=== PATIENT | female | born 1945 | race Caucasian/White ===

== ENCOUNTER 2023-12-29 17:27 | Emergency (ER) | payer MEDICARE, SELFPAY ==
[2023-12-29 17:42] VITALS: BP 150/76
[2023-12-29 18:08] LABS: % Basophils 0.7 % (0-2); % Eosinophils 1.7 % (0-6); % Immature Granulocytes 0.6 % (0-0.5); % Lymphocytes 22.5 % (20.5-51.1); % Monocytes 6.5 % (1.7-9.3); Absolute Basophils 0.1 10^3/uL (0-0.2); Absolute Eosinophils 0.2 10^3/uL (0-0.7); Absolute Immature Granulocytes 0.1 10^3/uL (0-0.05); Absolute Monocytes 0.6 10^3/uL (0.1-0.6); Absolute Neutrophils 5.9 10^3/uL (1.4-6.5); Hematocrit 36.9 % (37.0-47.0); Hemoglobin 12.7 g/dL (12.0-16.0); Mean Corp Hgb Conc. 34.4 g/dL (33.0-37.0); Mean Corpuscular Hgb 30.5 pg (27.0-31.0); Mean Corpuscular Volume 88.5 fL (81.0-99.0); Mean Platelet Volume 12.2 fL (7.4-10.4); Nucleated Red Blood Cells % 0 %; Platelet Count 167 10^3/uL (130-400); Red Blood Cell Count 4.17 10^6/uL (4.20-5.40); Red Cell Dist. Width 12.8 % (11.5-14.5); White Blood Cell Count 8.7 10^3/uL (4.8-10.8)
[2023-12-29 18:31] LABS: Troponin I < 0.012 ng/ml
[2023-12-29 18:32] LABS: COVID-19 Antigen Negative (Negative)
[2023-12-29 18:34] LABS: ALT (SGPT) 16 U/L (0-35); AST (SGOT) 26 U/L (14-36); Albumin 3.3 g/dl (3.5-5.0); Alkaline Phosphatase 102 U/L (38-126); Blood Urea Nitrogen 22 mg/dl (7-17); Calcium 8.9 mg/dl (8.4-10.2); Carbon Dioxide 23 mmol/L (22-30); Chloride 107 mmol/L (98-107); Glucose 262 mg/dl (70-99); Potassium 4.2 mmol/L (3.5-5.1); Sodium 138 mmol/L (135-145); Total Bilirubin 0.6 mg/dl (0.2-1.3); eGFR 51.11
[2023-12-29 21:00] VITALS: BP 138/61
--- NOTE | 2023-12-29 21:30 | ED.GENMED ---
History of Present Illness
General
Chief Complaint: Breathing Problem
Source: patient
Exam Limitations: none
Time Seen by Provider: 12/29/23 20:38
Nursing documentation reviewed up to this point in time: agreed with
Travel History
Have you had any contact with someone who has COVID-19?: No
Do you have any symptoms of coronavirus? Fever > 100 degrees, chills, cough, shortness of breath, sore throat, loss of taste or smell, muscle aches, or headache?: Yes
Symptoms:: cough
History of Present Illness
History of Present Illness:
Patient presents to ED secondary to 2-week history of persistent cough, along with left-sided chest pain. Denies fever or chills. Patient reports mild shortness of breath. Denies nausea, vomiting, or diarrhea. Denies headache. Denies loss of
appetite. Denies back pain. Denies leg pain or swelling. Denies recent travel or surgery. Interestingly, patient states that her pain has decreased in intensity over the past 3 days, although cough is continuing. Patient has had history of
bronchitis in the past. Denies family history of blood clots.
Past History
Past History
ED Past Medical History: CAD, COPD, HTN and Other (Polymyalgia rheumatica/fibromyalgia)
ED Past Surgical History: None
Social History
Tobacco: Non-smoker
Alcohol: None
Drug: None
Review of Systems
Review of Systems
Allergies reviewed?: Yes
All Other Systems: ROS reviewed and negative except as documented in HPI and ROS
Constitutional: Reports no symptoms
EENT: Reports no symptoms
Respiratory: Reports cough and trouble breathing
Cardiac: Reports chest pain
ABD/GI: Reports no symptoms
: Reports no symptoms
Musculoskeletal: Reports no symptoms
Skin: Reports no symptoms
Neurological: Reports no symptoms
Phy Exam
Physical Exam
Physical Exam:
Physical Exam
General: no apparent distress, not acutely ill. afebrile.
Head: nc/at. eomi
Neck: supple. no meningeal signs.
Heart: s1/s2 regular rate and rhythm, no murmur. equal radial pulses.
Lungs: no acute respiratory distress. faint expiratory wheezing noted bilaterally. mild left anterior chest wall tenderness to palpation.
Abdomen: normal bowel sounds. not tender.
Neuro: alert and oriented. no focal neurological deficits
Skin: no rash
Psychiatric: well kept. interactive and cooperative
Extremities: no edema. no calf tenderness.
Scores
Heart Failure Risk
Heart Failure Risk Score: Not Applicable
Course
Orders/Labs/Results
Orders:
Orders
12/29/23 17:48
EKG [Electrocardiogram (*1)] Urgent
Reason for Study: Shortness of Breath
12/29/23 17:49
EKG- Treatment ONCE
12/29/23 18:00
CBC/With Diff [Complete Blood Count/With Diff] Urgent
CMP [Comprehensive Metabolic Panel] Urgent
COVID-19 Antigen Urgent
Source: Nasal Swab
Troponin I Urgent
12/29/23 20:39
CR Chest - 2 Views Urgent
Comment:
Reason For Exam: cough/sob/cp
12/29/23 21:28
D-Dimer Urgent
12/29/23 21:30
Dexamethasone Sod Phosphate [Decadron] 10 mg IV NOW STA
Guaifenesin/Codeine Solution [Robitussin AC] 10 ml PO NOW STA
Ipratropium/Albuterol Sulfate [Duoneb] 3 ml INH R NOW STA
Ketorolac [Toradol] 15 mg IV NOW STA
12/29/23 22:20
Azithromycin [Zithromax] 500 mg PO NOW STA
Abnormal Lab Results
12/29/23 12/29/23
18:00 21:28
RBC 4.17 L 10^6/uL
(4.20-5.40)
Hct 36.9 L %
(37.0-47.0)
MPV 12.2 H fL
(7.4-10.4)
Abs Immat Gran (auto) 0.1 H 10^3/uL
(0-0.05)
Immature Gran % 0.6 H %
(0-0.5)
D-Dimer 0.65 H ug/mlFEU
(0.00-0.50)
BUN 22 H mg/dl
(7-17)
Creatinine 1.1 H mg/dL
(0.6-1.0)
Glucose 262 H mg/dl
(70-99)
Total Protein 6.0 L g/dl
(6.3-8.2)
Albumin 3.3 L g/dl
(3.5-5.0)
12/29/23 18:00
12/29/23 18:00
Vital Signs
Initial and Last Documented VS:
Initial Vital Signs
Temp Pulse Resp BP Pulse Ox
98.1 F 65 20 150/76 96
12/29/23 17:42 12/29/23 17:42 12/29/23 17:42 12/29/23 17:42 12/29/23 17:42
Last Documented Vital Signs
Temp Pulse Resp BP Pulse Ox
98.1 F 55 14 157/70 97
12/29/23 17:42 12/29/23 22:15 12/29/23 22:15 12/29/23 22:00 12/29/23 22:00
MDM/Problems Addressed
MDM/Problems Addressed:
D-dimer, when adjusted for age, within normal range. Patient with chest pain, reproducible, likely secondary to musculoskeletal etiology from significant coughing spells. History and exam consistent with likely acute bronchitis, which will be
treated with a course of Zithromax, cough medication, as well as steroids and use of inhaler at home. Patient will be advised to follow-up with her primary care physician or oilseed meat presser for reevaluation. Patient will be discharged in stable
condition, to the care of her daughter.
*Critical Care Note
Total Time (30-74mins, 75-104mins- exclusive of procedures): Not Applicable
ED Attending Note
-
Portions of this chart may have been created with voice recognition software.� Occasional wrong word or��sound alike� substitutions may have occurred due to the inherent limitations of voice recognition software.
Discharge Plan
Departure
Patient Disposition: Home (Routine Discharge)
Date of Disposition: 12/29/23
Time of Disposition: 22:20
Patient with high blood pressure during this ER visit?: Yes
Discharge Problem:
Acute bronchitis, Chest wall pain
Instructions: Acute Bronchitis, Adult (DC)
Prescriptions:
New
azithromycin [Zithromax] 250 mg tablet
250 mg PO DAILY 4 Days Qty: 4 0RF
benzonatate 100 mg capsule
100 mg PO BID PRN (Reason: Cough) Qty: 14 0RF
albuterol sulfate [ProAir HFA] 90 mcg/actuation Hfa Aerosol Inhaler
2 puff INHALATION Q4HPRN PRN (Reason: shortness of breath/cough) Qty: 8.5 0RF
prednisone 50 mg tablet
50 mg PO DAILY Qty: 2 0RF
No Action
insulin detemir U-100 [Levemir FlexTouch U100 Insulin] 300 UNIT/3 ML insulin pen
30 unit SC 0700,1700
Patient Comments:
pt took 20units this am for blood sugar of 184.
mecobalamin (vitamin B12) 1,000 MCG tablet,disintegrating
1,000 mcg PO DAILY
topiramate 25 MG tablet
50 mg PO BID
Patient Comments:
pt normally take her twice a day meds around 8pm.but was home late last evening and took at 11pm
carisoprodol 350 MG tablet
350 mg PO HSPRN PRN (Reason: as directed)
triamterene-hydrochlorothiazid 1 EACH tablet
1 ea PO DAILY
montelukast 10 MG tablet
10 mg PO QPM
fluticasone propionate 1 SPRAY spray,suspension
1 spray intranasal DAILY
cholecalciferol (vitamin D3) [Vitamin D3] 1,000 UNIT capsule
1,000 unit PO DAILY
insulin aspart U-100 [Novolog FlexPen U-100 Insulin] 300 UNITS/3 ML insulin pen
8 units SC DAILY
Patient Comments:
normally takes 8units but may be a sliding scale
guaifenesin [Mucus Relief ER] 600 MG tablet extended release 12hr
600 mg PO Q12H
atorvastatin 40 MG tablet
40 mg PO DAILY
aspirin 81 MG tablet,delayed release (DR/EC)
81 mg PO DAILY
propranolol 80 MG capsule,extended release 24 hr
80 mg PO DAILY
jaqhgrgl-iew-ctzk-FA-vit K-lut [Centrum Silver Women] 1 EACH tablet
1 ea PO DAILY
vcgat-tmbiy-2-eig-hhr-odrldz [krill oil] 1 EACH capsule
1 ea PO DAILY
C,E,zinc,copper [id number] 1 CAP capsule
1 cap PO DAILY
Albuterol Nebs
1 dose inhalation PRN PRN (Reason: as directed)
lansoprazole [Prevacid] 15 MG capsule,delayed release(DR/EC)
15 mg PO DAILY
Zantac
1 tab PO DAILY
tramadol [Ultram] 50 MG tablet
50 mg PO Q6H PRN (Reason: pain) Qty: 20 0RF
oseltamivir 75 MG capsule
75 mg PO BID Qty: 10 0RF
Referrals:
Trish Alegre MD [Family Provider] -
Activity Restrictions/Additional Instructions:
As discussed, please follow-up with your primary care physician and/or oilseed meat presser for reevaluation. Your prescriptions have been sent electronically to [facility] pharmacy in [place].
Interventions
Interventions:
*Risk Screen - Suicide Last Done: 12/29/23 17:47
*General Assessment Last Done: 12/29/23 22:04
*Neglect/Abuse Screening Last Done: 12/29/23 17:47
ED- Fall Risk Assessment Last Done: 12/29/23 21:15
*ED COVID-19 Vaccine History Last Done: 12/29/23 17:47
*Nursing Disposition Last Done: 12/29/23 22:46
ED- Cardiac Assessment Last Done: 12/29/23 21:15
ED- Pulmonary Assessment Last Done: 12/29/23 21:15
Discharge Date and Time
Discharge Date/Time: 12/29/23 22:47
[2023-12-29 21:49] LABS: D-Dimer 0.65 ug/mlFEU (0.00-0.50)
[2023-12-29] MEDS: DECADRON 10 MG IV (21:56)
[2023-12-29] MEDS: DUONEB 3 ML INH (21:56)
[2023-12-29] MEDS: TORADOL 15 MG IV (21:57)
[2023-12-29 22:00] VITALS: BP 157/70
[2023-12-29] MEDS: ZITHROMAX 500 MG PO (22:38)
== END 2023-12-29 22:47 | disposition home or self-care (01) ==
LOC: EMR 17:27
PROVIDERS: Emergency Medicine; EMERGENCY PHYSICIAN Emergency Medicine; FAMILY PHYSICIAN Emergency Medicine
DX: J20.9 Acute bronchitis, unspecified (principal); R07.89 Other chest pain; I10 Essential (primary) hypertension
CPT/HCPCS: 99285; 96374; 96375; 94640; 71046; 80053; 84484; 85025; 85379; 87811; 93005

== ENCOUNTER → 2024-02-16 08:28 | Outpatient (REF) | payer MEDICARE, SELFPAY | LOC: WDC 08:28 | PROVIDERS: ATTENDING PHYSICIAN Nurse Practitioner Family | DX: N64.4 Mastodynia (principal) | CPT/HCPCS: 76642; 77062; 77066 ==

== ENCOUNTER 2024-03-14 18:58 | Inpatient (IN) | payer MEDICARE, SELFPAY ==
[2024-03-14 12:53] VITALS: BP 149/73
[2024-03-14] MEDS: DUONEB 3 ML INH (14:56)
[2024-03-14] MEDS: TYLENOL 650 MG PO (15:07)
[2024-03-14 15:08] LABS: % Basophils 0.3 % (0-2); % Eosinophils 0.2 % (0-6); % Immature Granulocytes 0.6 % (0-0.5); % Lymphocytes 4.3 % (20.5-51.1); % Monocytes 2.2 % (1.7-9.3); % Neutrophils 92.4 % (42.2-75.2); Absolute Basophils 0.1 10^3/uL (0-0.2); Absolute Immature Granulocytes 0.1 10^3/uL (0-0.05); Absolute Lymphocytes 0.8 10^3/uL (1.2-3.4); Absolute Monocytes 0.4 10^3/uL (0.1-0.6); Absolute Neutrophils 16.7 10^3/uL (1.4-6.5); Hematocrit 34.5 % (37.0-47.0); Hemoglobin 12.2 g/dL (12.0-16.0); Mean Corp Hgb Conc. 35.4 g/dL (33.0-37.0); Mean Corpuscular Volume 87.8 fL (81.0-99.0); Mean Platelet Volume 11.8 fL (7.4-10.4); Nucleated Red Blood Cells % 0 %; Platelet Count 201 10^3/uL (130-400); Red Blood Cell Count 3.93 10^6/uL (4.20-5.40); White Blood Cell Count 18.1 10^3/uL (4.8-10.8)
[2024-03-14 15:28] LABS: ALT (SGPT) 18 U/L (0-35); AST (SGOT) 22 U/L (14-36); Albumin 3.5 g/dl (3.5-5.0); Alkaline Phosphatase 122 U/L (38-126); Blood Urea Nitrogen 26 mg/dl (7-17); Calcium 9.2 mg/dl (8.4-10.2); Carbon Dioxide 20 mmol/L (22-30); Chloride 103 mmol/L (98-107); Estimated Creatinine Clearance 42 ml/min; Glucose 391 mg/dl (70-99); Potassium 3.8 mmol/L (3.5-5.1); Sodium 137 mmol/L (135-145); Total Bilirubin 0.9 mg/dl (0.2-1.3); Total Protein 5.8 g/dl (6.3-8.2); eGFR 46.05
--- NOTE | 2024-03-14 15:35 | ED.GENMED ---
History of Present Illness
General
Chief Complaint: Cough
Source: patient
Exam Limitations: none
Time Seen by Provider: 03/14/24 14:36
Travel History
Have you had any contact with someone who has COVID-19?: No
Do you have any symptoms of coronavirus? Fever > 100 degrees, chills, cough, shortness of breath, sore throat, loss of taste or smell, muscle aches, or headache?: No
History of Present Illness
History of Present Illness:
78-year-old female with history of bronchitis presents complaining of increased cough and shortness of breath starting yesterday getting worse today. She was seen here 2 months ago and in the interim have seen pulmonology. She was started on Breo
for her bronchitis. She states she ran out of steroids 2 days ago and has been worse since then. She denies a fever. She gets up clear mucus occasionally. She denies leg swelling. She presents via EMS. No other complaints at this time
Past History
Past History
ED Past Medical History: CAD, COPD, HTN and Other (Polymyalgia rheumatica/fibromyalgia)
ED Past Surgical History: None
Social History
Tobacco: Non-smoker
Alcohol: None
Drug: None
Phy Exam
Physical Exam
Physical Exam:
General: Well-appearing female no acute respiratory distress
HEENT: Normocephalic atraumatic heart: Regular rate and rhythm no murmurs
Lungs: Coughing throughout the exam but inspiratory wheeze heard bilaterally
Extremities: No cyanosis or edema
Skin: Warm no rash
Course
Orders/Labs/Results
Orders:
Orders
03/14/24 14:50
Ipratropium/Albuterol Sulfate [Duoneb] 3 ml INH R NOW STA
03/14/24 14:51
CR Chest - 2 Views Urgent
Comment:
Reason For Exam: sob
03/14/24 15:02
Complete Blood Count/With Diff Urgent
Comprehensive Metabolic Panel Urgent
NT-proBNP Urgent
03/14/24 15:05
Acetaminophen [Tylenol] 650 mg .ROUTE .STK-MED ONE
03/14/24 15:07
Acetaminophen [Tylenol] 650 mg PO NOW STA
Abnormal Lab Results
03/14/24
15:02
WBC 18.1 H 10^3/uL
(4.8-10.8)
RBC 3.93 L 10^6/uL
(4.20-5.40)
Hct 34.5 L %
(37.0-47.0)
MPV 11.8 H fL
(7.4-10.4)
Abs Immat Gran (auto) 0.1 H 10^3/uL
(0-0.05)
Absolute Neuts (auto) 16.7 H 10^3/uL
(1.4-6.5)
Absolute Lymphs (auto) 0.8 L 10^3/uL
(1.2-3.4)
Immature Gran % 0.6 H %
(0-0.5)
Neutrophils % 92.4 H %
(42.2-75.2)
Lymphocytes % 4.3 L %
(20.5-51.1)
Carbon Dioxide 20 L mmol/L
(22-30)
BUN 26 H mg/dl
(7-17)
Creatinine 1.2 H mg/dL
(0.6-1.0)
Glucose 391 H mg/dl
(70-99)
Total Protein 5.8 L g/dl
(6.3-8.2)
03/14/24 15:02
03/14/24 15:02
Vital Signs
Initial and Last Documented VS:
Initial Vital Signs
Temp Pulse Resp BP Pulse Ox
97.7 F 73 16 149/73 100
03/14/24 12:53 03/14/24 12:53 03/14/24 12:53 03/14/24 12:53 03/14/24 12:53
Last Documented Vital Signs
Temp Pulse Resp BP Pulse Ox
97.7 F 72 22 149/73 97
03/14/24 12:53 03/14/24 15:47 03/14/24 15:47 03/14/24 12:53 03/14/24 15:47
MDM/Problems Addressed
Differential Diagnosis Includes:
Cough with wheeze. Consider recurrent bronchitis versus pneumonia. No evidence of volume overload to suggest CHF.
Other medical issues that affect his care insulin-dependent diabetes.
*Critical Care Note
Total Time (30-74mins, 75-104mins- exclusive of procedures): Not Applicable
Update Note
Update Note:
Patient still with increased work of breathing after nebulizer here and Decadron en route. Chest x-ray is clear. White blood cell count 18,000 however this may be related to recent steroid use. Serum glucose 391.
ED Attending Note
-
Portions of this chart may have been created with voice recognition software.� Occasional wrong word or��sound alike� substitutions may have occurred due to the inherent limitations of voice recognition software.
Discharge Plan
Departure
Patient Disposition: Admit
Date of Disposition: 03/14/24
Time of Disposition: 17:29
Admit to: Telemetry
Presentation/result/management discussed w/ accepting MD/DO: Hospitalist
Discharge Problem:
COPD exacerbation
Prescriptions:
No Action
insulin detemir U-100 [Levemir FlexTouch U100 Insulin] 300 UNIT/3 ML insulin pen
30 unit SC 0700,1700
Patient Comments:
pt took 20units this am for blood sugar of 184.
mecobalamin (vitamin B12) 1,000 MCG tablet,disintegrating
1,000 mcg PO DAILY
topiramate 25 MG tablet
50 mg PO BID
Patient Comments:
pt normally take her twice a day meds around 8pm.but was home late last evening and took at 11pm
carisoprodol 350 MG tablet
350 mg PO HSPRN PRN (Reason: as directed)
triamterene-hydrochlorothiazid 1 EACH tablet
1 ea PO DAILY
montelukast 10 MG tablet
10 mg PO QPM
fluticasone propionate 1 SPRAY spray,suspension
1 spray intranasal DAILY
cholecalciferol (vitamin D3) [Vitamin D3] 1,000 UNIT capsule
1,000 unit PO DAILY
insulin aspart U-100 [Novolog FlexPen U-100 Insulin] 300 UNITS/3 ML insulin pen
8 units SC DAILY
Patient Comments:
normally takes 8units but may be a sliding scale
guaifenesin [Mucus Relief ER] 600 MG tablet extended release 12hr
600 mg PO Q12H
atorvastatin 40 MG tablet
40 mg PO DAILY
aspirin 81 MG tablet,delayed release (DR/EC)
81 mg PO DAILY
propranolol 80 MG capsule,extended release 24 hr
80 mg PO DAILY
wakmvlje-bjr-gndm-FA-vit K-lut [Centrum Silver Women] 1 EACH tablet
1 ea PO DAILY
hfhvu-kqomg-6-xoi-eab-ehnxtj [krill oil] 1 EACH capsule
1 ea PO DAILY
C,E,zinc,copper [id number]-ani 1 CAP capsule
1 cap PO DAILY
Albuterol Nebs
1 dose inhalation PRN PRN (Reason: as directed)
lansoprazole [Prevacid] 15 MG capsule,delayed release(DR/EC)
15 mg PO DAILY
Zantac
1 tab PO DAILY
tramadol [Ultram] 50 MG tablet
50 mg PO Q6H PRN (Reason: pain) Qty: 20 0RF
oseltamivir 75 MG capsule
75 mg PO BID Qty: 10 0RF
azithromycin [Zithromax] 250 mg tablet
250 mg PO DAILY 4 Days Qty: 4 0RF
benzonatate 100 mg capsule
100 mg PO BID PRN (Reason: Cough) Qty: 14 0RF
albuterol sulfate [ProAir HFA] 90 mcg/actuation Hfa Aerosol Inhaler
2 puff INHALATION Q4HPRN PRN (Reason: shortness of breath/cough) Qty: 8.5 0RF
prednisone 50 mg tablet
50 mg PO DAILY Qty: 2 0RF
albuterol sulfate [ProAir HFA] 90 mcg/actuation HFA aerosol inhaler
1 puff inhalation Q4HPRN PRN (Reason: shortness of breath) Qty: 6.7 0RF
Referrals:
Trish Alegre MD [Family Provider] -
Interventions
Interventions:
*Risk Screen - Suicide Last Done: 03/14/24 12:53
*General Assessment Last Done: 03/14/24 12:53
*Neglect/Abuse Screening Last Done: 03/14/24 12:53
*ED COVID-19 Vaccine History Last Done: 03/14/24 12:53
ED- Pulmonary Assessment Last Done: 03/14/24 13:01
Discharge Date and Time
Print Language: TUVALUAN
[2024-03-14 15:37] LABS: NT-proBNP 1360 pg/ml
--- NOTE | 2024-03-14 18:24 | HPS.HSE ---
Addendum entered and electronically signed by Jaydon Carlson MD 03/14/24 22:54:
I saw and examined the patient.
The MANUFACTURING TEACHER or PA's note was reviewed and I agree with the note.
Comment:
78F bronchitis cough variant asthma migraines CAD Essential Tremors DM p/w worsening sob cough wheezing past day. Previously on prednisone taper for asthma exacerbation. Patient noted return/worsening of symptoms a few days following taper
completion. Symptoms improved with steroids bronchodilators but remain debilitating/distressing. VSS afebrile on room air. CXR noted no acute cardiopulmonary processes. Labs noted wbc 18.1 and hyperglycemia likely steroid induced.
Physical Exam
General: mild moderate distress d/t dyspnea coughing
HEENT: NormoCephalic and Anicteric
Respiratory: expiratory wheeze
Cardiac: S1/S2 and Regular Rhythm
GI: Soft and Non Tender
Musculoskeletal: No Clubbing, No Cyanosis, No Edema
Skin: Warm and Dry
Neuro: Awake, Alert, Oriented and Nonfocal/grossly intact
Psych: Calm
#Asthma COPD exacerbation
denies hx smoking however reports both parents smoked throughout her childhood
steroids bronchodilators pulm eval
Doxycycline
trend WBC
PT/OT eval
#DM
glycemic control
cont home insulin regimen for now
will likely require uptitration with steroid induced hyperglycemia
Original Note:
Family Physician
-
Family Physician: Trish Alegre MD
Chief Complaint
-
Shortness of Breath
History of Present Illness
This is a 78 year old female with a past medical history of bronchitis, cough variant asthma, migraines, coronary artery disease and diabetes who presents for acutely worsening shortness or breathe and cough x 1 day. She describes the shortness of
breathe as 'being unable to catch my breathe.' She states the coughing became so severe last night that she was unable to sleep. She states she has been using her nebulizer and albuterol which helps her clear phlegm. She states she was being treated
on a steroid taper for an episode of bronchitis but once the taper was completed, she experienced worsening symptoms. She had a follow up appointment with Dr. Schwartz's office for reevaluation, but due to being late to the appointment, they would
not see her. She saw her PCP instead who gave her a 6 day supply of prednisone which she completed 3 days ago, and this is when she noticed her symptoms worsening. She also complains of right calf pain, but denies lower extremity edema. She denies
fever, chest pain, nausea/vomiting or abdominal pain.
Medical History
Past Medical History
Past Medical History: Reports Other
Additional Past Medical History:
Coronary Artery Disease s/p Stent
Essential Hypertension
Hyperlipidemia
Diabetes Mellitus, Type II
Diabetic Neuropathy
CKD Stage III
Asthma, cough variant
Polymyalgia Rheumatica
Fibromyalgia
Vestibular Migraines
Past Surgical History: Reports Other
Additional Past Surgical History:
Hysterectomy
Bilateral Carpal Tunnel
Bilateral Knee Replacement
Bilateral Foot Surgery
Left Breast Lumpectomy
Social History
Tobacco: Non-smoker
Alcohol: Other (One drink on her birthday)
Family History
Family History: Not pertinent
Allergies / Home Medications
Allergies reflects when Allergies were last updated in [employer].
Home Medications with original date entered in [employer]
Allergy/Medication List:
Allergies
Allergy/AdvReac Type Severity Reaction Status Date / Time
codeine Allergy VOMITING\\RA Verified 12/29/23 17:42
SH
diphenhydramine HCl Allergy UPSET Verified 12/29/23 17:42
[From Benadryl] STOMACH
hydrocodone Allergy VOMITING Verified 12/29/23 17:42
RASH
ketotifen [Ketotifen] Allergy Unknown Verified 12/29/23 17:42
'CANTEL'
morphine Allergy VOMITING Verified 12/29/23 17:42
RASH
oxycodone Allergy VOMITING Verified 12/29/23 17:42
RASH
propoxyphene Allergy VOMITING Verified 12/29/23 17:42
RASH
pollen Allergy Unknown Uncoded 12/29/23 17:42
Home Medications
aspirin 81 mg tablet,delayed release 81 mg PO DAILY 04/17/16
carisoprodol 350 mg tablet 350 mg PO HS 04/17/16
guaifenesin 600 mg tablet, extended release 12 hr (Mucus Relief ER) 600 mg PO Q12H PRN cough/congestion 04/17/16
Benefiber 1 dose PO DAILYPRN PRN constipation 03/14/24
acetaminophen 500 mg tablet (Tylenol Extra Strength) 1,000 mg PO DAILYPRN PRN mild pain 03/14/24
albuterol sulfate 2.5 mg/3 mL (0.083 %) solution for nebulization 2.5 mg inhalation R TID 03/14/24
amlodipine 5 mg tablet 5 mg PO DAILY 03/14/24
atorvastatin 80 mg tablet 80 mg PO HS 03/14/24
benzonatate 200 mg capsule 200 mg PO TID PRN cough 03/14/24
calcium carbonate (Calcium 600) 1,200 mg PO HS 03/14/24
cholecalciferol (vitamin D3) 25 mcg (1,000 unit) tablet 25 mcg PO DAILY 03/14/24
ezetimibe 10 mg tablet 10 mg PO DAILY 03/14/24
fluoxetine 40 mg capsule 40 mg PO DAILY 03/14/24
fluticasone furoate 100 mcg-vilanterol 25 mcg/dose inhalation powder (Breo Ellipta) 1 inh inhalation R DAILY@1600 03/14/24
gabapentin 300 mg capsule 300 mg PO QPM 03/14/24
insulin aspart U-100 100 unit/mL (3 mL) subcutaneous pen (Novolog FlexPen U-100 Insulin aspart) 0 sliding scale dose SC DIRECTED 03/14/24
insulin glargine 100 unit/mL (3 mL) subcutaneous pen (Lantus Solostar U-100 Insulin) 8 unit SC BID 03/14/24
magnesium hydroxide 400 mg/5 mL oral suspension (Milk of Magnesia) 30 ml PO DAILY PRN constipation 03/14/24
ozhdjker-hida-lkae 8 mg-folic 400 mcg-K 50 mcg-lutein 300 mcg tablet (Centrum Silver Women) 1 tab PO DAILY 03/14/24
omeprazole magnesium 20 mg tablet,delayed release (Prilosec OTC) 20 mg PO DAILY PRN gerd 03/14/24
omeprazole magnesium 20 mg tablet,delayed release (Prilosec OTC) 20 mg PO HS 03/14/24
polyethylene glycol 3350 17 gram oral powder packet (Miralax) 17 g PO DAILY PRN constipation 03/14/24
prednisolone acetate 1 % eye drops,suspension 2 drp BOTH EYES BID 03/14/24
propranolol 80 mg capsule,24 hr,extended release 80 mg PO QPM 03/14/24
topiramate 50 mg tablet 50 mg PO BID 03/14/24
triamterene 37.5 mg-hydrochlorothiazide 25 mg tablet 1 tab PO DAILY 03/14/24
Review of Systems
-
A 12 point ROS was completed and negative except as noted: Yes
Constitutional: Denies Fever or Chills
Respiratory: Reports See HPI
Cardiac: Denies Chest Pain or Palpitations
Physical Exam
Vital Signs
Vital Signs
Temp Pulse Resp BP Pulse Ox
97.7 F 72 22 149/73 97
03/14/24 12:53 03/14/24 15:47 03/14/24 15:47 03/14/24 12:53 03/14/24 15:47
Physical Exam
General: Comfortable and Conversant
HEENT: NormoCephalic and Anicteric
Respiratory: Clear, Non Labored Respirations and Other (Deep breathing induces cough)
Cardiac: S1/S2 and Regular Rhythm
GI: Soft and Non Tender
Musculoskeletal: No Clubbing, No Cyanosis, No Edema and Other (Slight tenderness right calf)
Skin: Warm and Dry
Neuro: Awake, Alert, Oriented and Nonfocal/grossly intact
Psych: Calm
Laboratory Results
-
03/14/24 15:02
03/14/24 15:02
Laboratory Results
Total Bilirubin 0.9 mg/dl (0.2-1.3) 03/14/24 15:02
AST 22 U/L (14-36) 03/14/24 15:02
ALT 18 U/L (0-35) 03/14/24 15:02
Alkaline Phosphatase 122 U/L (38-126) 03/14/24 15:02
Data Reviewed
-
Diagnostic Radiology: Report Reviewed by me
Lab Data: Labs Reviewed by me
Impression/Plan
-
Acute Asthma/COPD Exacerbation
-Consult Pulmonary
-Continue Decadron
-Continue Pulmicort
-Continue Duoneb QID and PRN
-Check ECG if QT stable then start azithromycin
Coronary Artery Disease s/p Stent
-Continue aspirin
Essential Hypertension
-Continue amlodipine and triamterene/HCTZ
Hyperlipidemia
-Continue atorvastatin and ezetimibe
Diabetes Mellitus, Type II
-Continue Lantus
-Monitor sugars and continue coverage insulin
Diabetic Neuropathy
-Continue gabapentin
CKD Stage III
-Creatinine at baseline
Vestibular Migraine
-Continue propranolol and topiramate
DVT proph: SC Heparin
Code Status: Full Code
[2024-03-14 19:30] VITALS: BP 172/73
[2024-03-14 20:11] VITALS: BMI 34.9
[2024-03-14] MEDS: PULMICORT INH (21:33)
[2024-03-14] MEDS: DUONEB INH (21:33)
[2024-03-14 22:05] LABS: Glucose - Point of Care 518 mg/dl (70-99)
[2024-03-14 23:10] LABS: Glucose 473 mg/dl (70-99)
[2024-03-14] MEDS: HEPARIN 5000 UNITS SC (23:29)
[2024-03-14] MEDS: LANTUS 0.0800000000000000017 UNITS SC (23:29)
[2024-03-14] MEDS: PROTONIX 40 MG PO (23:31)
[2024-03-14] MEDS: SOMA 350 MG PO (23:32)
[2024-03-14] MEDS: VIBRAMYCIN 100 MG PO (23:32)
[2024-03-14] MEDS: TESSALON PERLES 200 MG PO (23:32)
[2024-03-14] MEDS: LIPITOR 80 MG PO (23:32)
[2024-03-14 23:33] VITALS: BP 130/42
[2024-03-14] MEDS: NOVOLOG FLEXPEN 8 UNITS SC (23:33)
[2024-03-14] MEDS: MUCINEX 600 MG PO (23:37)
[2024-03-14] MEDS: TOPAMAX 50 MG PO (23:37)
[2024-03-15 01:39] LABS: Glucose - Point of Care 427 mg/dl (70-99)
[2024-03-15 02:11] LABS: Glucose 433 mg/dl (70-99)
[2024-03-15] MEDS: NOVOLOG FLEXPEN 10 UNITS SC ×3 (02:48→17:47)
[2024-03-15 04:37] LABS: Glucose - Point of Care 317 mg/dl (70-99)
[2024-03-15 05:46] VITALS: BMI 34.8
[2024-03-15 07:01] LABS: Glucose - Point of Care 257 mg/dl (70-99)
[2024-03-15 07:05] VITALS: BP 167/67
[2024-03-15] MEDS: PULMICORT 0.5 MG INH (07:16)
[2024-03-15] MEDS: DUONEB 3 ML INH ×4 (07:16→19:36)
--- NOTE | 2024-03-15 07:31 | W.PN.HOSP.TC ---
Today's Communication/Plan
-
bronchodilators steroids
ICS antitussives mucinex
Glycemic Control
Assessment / Plan
Assessment / Plan
Physical Exam
General: mild moderate distress d/t dyspnea coughing
HEENT: NormoCephalic and Anicteric
Respiratory: Clear to auscultation
Cardiac: S1/S2 and Regular Rhythm
GI: Soft and Non Tender
Musculoskeletal: No Clubbing, No Cyanosis, No Edema
Skin: Warm and Dry
Neuro: Awake, Alert, Oriented and Nonfocal/grossly intact
Psych: Calm
78F bronchitis cough variant asthma migraines CAD Essential Tremors DM p/w worsening sob cough wheezing past day. Previously on prednisone taper for asthma exacerbation. Patient noted return/worsening of symptoms a few days following taper
completion. Symptoms improved with steroids bronchodilators but remain debilitating/distressing. VSS afebrile on room air. CXR noted no acute cardiopulmonary processes. Labs noted wbc 18.1 and hyperglycemia likely steroid induced.
Acute Asthma/COPD Exacerbation
-Consult Pulmonary appreciated Hi dose ICS mucinex scheduled Tessalon Perles
-Continue Decadron
-Continue Pulmicort
-Continue Duoneb QID and PRN
-Doxycycline 100 mg BID for anti-inflammatory effects (Azithromycin not used d/t QT prolongation)
Coronary Artery Disease s/p Stent
-Continue aspirin
Essential Hypertension
-Continue amlodipine and triamterene/HCTZ
Hyperlipidemia
-Continue atorvastatin and ezetimibe
Diabetes Mellitus, Type II
Steroid Induced Hyperglycemia
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
medium dose sliding scale
Diabetic Neuropathy
-Continue gabapentin
CKD Stage III
-Creatinine at baseline
Vestibular Migraine
-Continue propranolol and topiramate
DVT proph: SC Heparin
Code Status: Full Code
I spent a total of 58 minutes with the patient or on the floor. More than 50% of this time involved counseling and coordination of care.
Anticipated Discharge: 24 - 48 hours
Subjective/Interval History
-
Date of Service: March 15, 2024
continues to report significant coughing.
Objective Data
-
Labs:
Laboratory Results
03/14/24 03/15/24 03/15/24
22:32 01:46 06:00
WBC Pending
Hgb Pending
Hct Pending
Plt Count Pending
Sodium Pending
Potassium Pending
Chloride Pending
Carbon Dioxide Pending
BUN Pending
Creatinine Pending
Glucose 473 H* 433 H Pending
Calcium Pending
Vital Signs:
Vital Signs
Temp Pulse Resp BP Pulse Ox
98.5 F 69 18 130/42 93
03/14/24 23:33 03/14/24 23:33 03/14/24 23:33 03/14/24 23:33 03/14/24 23:33
I&O
03/14/24 03/15/24 03/16/24
06:59 06:59 06:59
Intake Total 480 / 480
Balance 480 / 480
[2024-03-15] MEDS: NOVOLOG FLEXPEN-MODERATE RESISTANCE 5 UNITS SC (07:58)
[2024-03-15] MEDS: HEPARIN 5000 UNITS SC ×2 (07:59→15:21)
[2024-03-15] MEDS: DYAZIDE 1 CAPSULE PO (07:59)
[2024-03-15] MEDS: ASPIR LOW (ENTERIC COATED) 81 MG PO (07:59)
[2024-03-15] MEDS: DECADRON 4 MG IV ×2 (07:59→15:21)
[2024-03-15] MEDS: LANTUS 0.0800000000000000017 UNITS SC (08:00)
[2024-03-15] MEDS: PROZAC 40 MG PO (08:08)
[2024-03-15] MEDS: MUCINEX 600 MG PO (08:08)
[2024-03-15] MEDS: VIBRAMYCIN 100 MG PO ×2 (08:08→20:39)
[2024-03-15] MEDS: NORVASC 5 MG PO (08:08)
[2024-03-15] MEDS: TOPAMAX 50 MG PO ×2 (08:08→20:39)
[2024-03-15] MEDS: ZETIA 10 MG PO (08:09)
[2024-03-15 08:16] LABS: % Basophils 0.2 % (0-2); % Immature Granulocytes 0.8 % (0-0.5); % Lymphocytes 8.9 % (20.5-51.1); % Neutrophils 85.1 % (42.2-75.2); Absolute Immature Granulocytes 0.1 10^3/uL (0-0.05); Absolute Lymphocytes 1.5 10^3/uL (1.2-3.4); Absolute Monocytes 0.8 10^3/uL (0.1-0.6); Absolute Neutrophils 13.8 10^3/uL (1.4-6.5); Hematocrit 33.6 % (37.0-47.0); Hemoglobin 11.6 g/dL (12.0-16.0); Mean Corp Hgb Conc. 34.5 g/dL (33.0-37.0); Mean Corpuscular Hgb 30.8 pg (27.0-31.0); Mean Corpuscular Volume 89.1 fL (81.0-99.0); Mean Platelet Volume 12.3 fL (7.4-10.4); Nucleated Red Blood Cells % 0 %; Platelet Count 199 10^3/uL (130-400); Red Blood Cell Count 3.77 10^6/uL (4.20-5.40); Red Cell Dist. Width 13.1 % (11.5-14.5); White Blood Cell Count 16.3 10^3/uL (4.8-10.8)
[2024-03-15 09:06] LABS: Blood Urea Nitrogen 32 mg/dl (7-17); Calcium 9.1 mg/dl (8.4-10.2); Carbon Dioxide 24 mmol/L (22-30); Chloride 104 mmol/L (98-107); Estimated Creatinine Clearance 42 ml/min; Glucose 277 mg/dl (70-99); Potassium 3.8 mmol/L (3.5-5.1); Sodium 137 mmol/L (135-145); eGFR 46.05
[2024-03-15] MEDS: TESSALON PERLES 200 MG PO (10:10)
--- NOTE | 2024-03-15 10:41 | CM ---
Patient seen bedside, initial assessment completed. Patient reports she resides alone in a first floor apartment, no steps to enter, elevator in apartment. Patient denies DME other than nebulizer, denies VN or SNF history. Patient confirms PCP
Trish Alegre, pharmacy [facility] [place], confirms prescription coverage. CM will continue to follow for discharge planning needs.
Plan; home no needs, watch for possible VN needs.
--- NOTE | 2024-03-15 11:17 | CON.PUL ---
Consultation
Consultation Request
Date/Time Consultation Requested: 03/15/24
Date/Time Consultation Performed: 03/15/24
Performing Provider: Elizabeth
Reason for Consultation: Cough
Medical History
-
History of Present Illness:
78 year old female with a past medical history of bronchitis, cough variant asthma, coronary artery disease and diabetes who presents for acutely worsening shortness or breathe and cough x 1 day. She states she has been using her nebulizer and
albuterol but felt paradoxical throat closure upon completion of treatment. She follows with Dr Wellington in office. Prior PFTs showing mild restriction.
She notes her chronic cough is never well controlled on Breo inhaler. She had last seen Geovanna and placed on prednisone but felt it was not helping.
She has tried tesslon perles in past but did not find this helpful.
She has been started on IV steroids since admission.
Past Medical History
Past Medical History: Other (see list below)
Social History
Tobacco: Non-smoker
Alcohol: None
Drug: None
Family History
Family History: Reviewed & Not Pertinent
Allergies / Home Medications
Allergies
Allergy/AdvReac Type Severity Reaction Status Date / Time
codeine Allergy VOMITING\\RA Verified 12/29/23 17:42
SH
diphenhydramine HCl Allergy UPSET Verified 12/29/23 17:42
[From Benadryl] STOMACH
hydrocodone Allergy VOMITING Verified 12/29/23 17:42
RASH
ketotifen [Ketotifen] Allergy Unknown Verified 12/29/23 17:42
'CANTEL'
morphine Allergy VOMITING Verified 12/29/23 17:42
RASH
oxycodone Allergy VOMITING Verified 12/29/23 17:42
RASH
propoxyphene Allergy VOMITING Verified 12/29/23 17:42
RASH
pollen Allergy Unknown Uncoded 12/29/23 17:42
Home Medications
�Medication �Instructions �Recorded �Confirmed �Last Taken �Type
aspirin 81 mg tablet,delayed 81 mg PO DAILY Blood Clot 04/17/16 03/14/24 03/13/24 History
release Prevention/Tx
carisoprodol 350 mg tablet 350 mg PO HS Muscle Spasms 04/17/16 03/14/24 03/13/24 History
guaifenesin 600 mg tablet, 600 mg PO Q12H PRN cough/congestion 04/17/16 03/14/24 03/12/24 History
extended release 12 hr (Mucus
Relief ER)
Benefiber 1 dose PO DAILYPRN PRN constipation 03/14/24 03/14/24 5 Days Ago History
~03/09/24
acetaminophen 500 mg tablet 1,000 mg PO DAILYPRN PRN mild pain 03/14/24 03/14/24 Unknown History
(Tylenol Extra Strength)
albuterol sulfate 2.5 mg/3 mL 2.5 mg inhalation R TID 03/14/24 03/14/24 03/14/24 History
(0.083 %) solution for nebulization Lung/Breathing Issues
amlodipine 5 mg tablet 5 mg PO DAILY Blood Pressure 03/14/24 03/14/24 03/13/24 History
atorvastatin 80 mg tablet 80 mg PO HS High Cholesterol 03/14/24 03/14/24 03/13/24 History
benzonatate 200 mg capsule 200 mg PO TID PRN cough 03/14/24 03/14/24 03/13/24 History
calcium carbonate (Calcium 600) 1,200 mg PO HS Supplement 03/14/24 03/14/24 03/13/24 History
cholecalciferol (vitamin D3) 25 25 mcg PO DAILY Supplement 03/14/24 03/14/24 03/13/24 History
mcg (1,000 unit) tablet
ezetimibe 10 mg tablet 10 mg PO DAILY High Cholesterol 03/14/24 03/14/24 1 Day Ago History
~03/13/24
fluoxetine 40 mg capsule 40 mg PO DAILY Mental 03/14/24 03/14/24 03/13/24 History
Health/Anxiety
fluticasone furoate 100 1 inh inhalation R DAILY@1600 03/14/24 03/14/24 03/13/24 History
mcg-vilanterol 25 mcg/dose Lung/Breathing Issues
inhalation powder (Breo Ellipta)
gabapentin 300 mg capsule 300 mg PO QPM Pain 03/14/24 03/14/24 03/13/24 History
insulin aspart U-100 100 unit/mL 0 sliding scale dose SC 03/14/24 03/14/24 03/13/24 History
(3 mL) subcutaneous pen (Novolog DIRECTED Diabetes
FlexPen U-100 Insulin aspart)
insulin glargine 100 unit/mL (3 8 unit SC BID Diabetes 03/14/24 03/14/24 03/13/24 History
mL) subcutaneous pen (Lantus
Solostar U-100 Insulin)
magnesium hydroxide 400 mg/5 mL 30 ml PO DAILY PRN constipation 03/14/24 03/14/24 4 Days Ago History
oral suspension (Milk of Magnesia) ~03/10/24
[id number] 8 mg-folic 400 1 tab PO DAILY Supplement 03/14/24 03/14/24 03/13/24 History
mcg-K 50 mcg-lutein 300 mcg tablet
(Centrum Silver Women)
omeprazole magnesium 20 mg 20 mg PO DAILY PRN gerd 03/14/24 03/14/24 Unknown History
tablet,delayed release (Prilosec
OTC)
omeprazole magnesium 20 mg 20 mg PO HS GERD 03/14/24 03/14/24 03/13/24 History
tablet,delayed release (Prilosec
OTC)
polyethylene glycol 3350 17 gram 17 g PO DAILY PRN constipation 03/14/24 03/14/24 3 Days Ago History
oral powder packet (Miralax) ~03/11/24
prednisolone acetate 1 % eye 2 drp BOTH EYES BID Eye Condition 03/14/24 03/14/24 03/13/24 History
drops,suspension
propranolol 80 mg capsule,24 80 mg PO QPM Blood Pressure 03/14/24 03/14/24 03/13/24 History
hr,extended release
topiramate 50 mg tablet 50 mg PO BID Mental Health/Anxiety 03/14/24 03/14/24 03/13/24 History
triamterene 37.5 1 tab PO DAILY Fluid 03/14/24 03/14/24 03/13/24 History
mg-hydrochlorothiazide 25 mg tablet Retention/Swelling
Review of Systems
-
History Source: Patient
All other systems: Negative unless noted
Vitals / Labs / Diagnostic Testing
Vital Signs
Temp Pulse Resp BP Pulse Ox
98.4 F 69 20 167/67 100
03/15/24 07:05 03/15/24 11:12 03/15/24 11:12 03/15/24 07:05 03/15/24 11:12
Lab Data
03/15/24 07:47
03/15/24 07:47
Diagnostic Testing:
Physical Exam
-
HEENT: Normocephalic, Anicteric and Moist Mucous Membranes
Cardiovascular: S1/S2 and Regular Rhythm
Respiratory: Clear and Non-Labored Respirations
GI: Soft, Non Distended and Non Tender
Neurology: Awake, Alert, Oriented, AO x 3 and No Motor Deficits
Skin: Warm, Dry and Good Color
General: Comfortable and Other (anxious appearing, obese)
Assessment
-
78 year old female with a past medical history of bronchitis, cough variant asthma, coronary artery disease and diabetes who presents for acutely worsening shortness or breathe and cough x 1 day. She states she has been using her nebulizer and
albuterol but felt paradoxical throat closure upon completion of treatment. She follows with Dr Wellington in office. Prior PFTs showing mild restriction. We are consulted for eval.
AE Asthma
Acute on chronic cough
VCD suspected, given closure of airway, cannot rule out anxiety
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
Cough variant asthma
Follow with Dr Wellington
Persistent cough 08/2018
Status post hospitalization late October 2012 for intractable cough exacerbation of asthma
Allergies to pollen and dust
Restrictive Lung Disease, TLC 3.71 L or 73% of predicted
Influenza A 10/2018
History of chronic bronchitis
Bronchitis 04/2017.
Acute bronchitis 05/2016
History of focal pleural thickening
CAD w/ History of percutaneous coronary intervention
Promus stent mid circumflex into [id number]
Fibromyalgia/Chronic pain syndrome
Gastroparesis
HTN
HLD
IDDM
CKD (chronic kidney disease), stage III
Status post left TKA
History of osteoarthritis status post right TKA in 01/2008
Popliteal DVT status post prior right TKA
Gastroesophageal reflux disease
SIDDHARTHA
Obesity BMI 34
SLE
Meniere's Disease
Polymyalgia rheumatica, Dr Roe
Plan
No oxygen was needed on admission, currently saturating 98% on RA
Prior history of lung disease is noted including cough variant asthma, allergies, obesity, SIDDHARTHA on CPAP, RLD
Follows with Dr Wellington
Suspect patient has underlying VCD as well given her description of events
CXR obtained indicating NAD
Other imaging reviewed in past also clear
Will start treatment with high dose ICS, change neb to inhaler
Continue albuterol nebs PRN
Placed on IV steroids, will taper in next 24 hours
We discussed pathophys of cough
Tessalon Perles to change to scheduled
Increased Mucinex to high dose
No ECHO results in past
Has history of HTN, not on ACEI
PND may be a factor with allergies
GERD-cont PPI from home
HOB elevation
SIDDHARTHA-resume home CPAP
Weight loss measures recommended
Obesity contributing to respiratory symptoms
We will follow
Diagnostic Data
CXR 03/14/24: No acute cardiopulmonary process.
12/29/23- No acute disease of the chest
[2024-03-15 12:03] LABS: Glucose - Point of Care 459 mg/dl (70-99)
[2024-03-15 13:04] LABS: Glucose 441 mg/dl (70-99)
[2024-03-15] MEDS: NOVOLOG FLEXPEN-MODERATE RESISTANCE 11 UNITS SC (13:25)
--- NOTE | 2024-03-15 13:39 | PN.DE.MGMTRT ---
Insulin Management
- -
03/15/2024 Diabetes Management Consult
Patient admitted 03/14 with cough, wheezing, asthma, COPD exacerbation. PMH CAD, tremor, type 2 diabetes, HTN, HLD, CKD III. Prior to admission was taking lantus 8 units BID with ss novolog @ each meal. A1C is 10%, cr 1.2, eGFR 46.05. Patient
states she sees Rick MILLER at [facility]. She uses a Amber for monitoring.
Patient is awake alert, resting in bed eating lunch.
She has been started on steroids, glucose up to 518 yesterday. Received lantus 8 units BID with moderate correctiv einsulin AC yesterday. Will increase BID lantus to 14 units and AC novolog to 10 units with moderate corrective.
Will follow
Diabetes History
- -
Type of Diabetes: 2 requiring insulin
Pre-Admission Diabetes Regimen
03/14/24 03/15/24
15:02 07:47
Creatinine 1.2 H 1.2 H
Lab Results
Hemoglobin A1c 10.0 % (4.0-5.6) H 03/15/24 07:47
Insulin Pump Settings
IP Diabetes Regimen
03/14/24 03/14/24 03/14/24
15:02 22:04 22:32
Glucose 391 H 473 H*
POC Glucose 518 H*
03/15/24 03/15/24 03/15/24
01:38 01:46 04:36
Glucose 433 H
POC Glucose 427 H 317 H
03/15/24 03/15/24 03/15/24
06:58 07:47 12:00
Glucose 277 H
POC Glucose 257 H 459 H*
03/15/24
12:32
Glucose 441 H
POC Glucose
Patient Education
[2024-03-15] MEDS: TYLENOL 650 MG PO (13:47)
[2024-03-15 15:00] VITALS: BP 143/57
[2024-03-15 16:49] LABS: Glucose - Point of Care 357 mg/dl (70-99)
[2024-03-15] MEDS: NOVOLOG FLEXPEN-MODERATE RESISTANCE 9 UNITS SC (17:46)
[2024-03-15] MEDS: INDERAL LA 80 MG PO (17:47)
[2024-03-15] MEDS: NEURONTIN 300 MG PO (17:47)
[2024-03-15] MEDS: FLOVENT 220MCG 2 PUFF INH (19:35)
[2024-03-15] MEDS: MUCINEX 1200 MG PO (20:39)
[2024-03-15 21:16] LABS: Glucose - Point of Care 267 mg/dl (70-99)
[2024-03-15] MEDS: LANTUS 0.140000000000000013 UNITS SC (21:32)
[2024-03-15] MEDS: LIPITOR 80 MG PO (21:32)
[2024-03-15] MEDS: SOMA 350 MG PO (21:32)
[2024-03-15] MEDS: PROTONIX 40 MG PO (21:32)
[2024-03-15 22:59] VITALS: BP 133/59
[2024-03-15 23:00] VITALS: BP 133/59
--- NOTE | 2024-03-16 04:08 | DOWNTIME ---
There was a [employer] Client Sales And Marketing Engineer Downtime on 03/15/2024 from 0100 to 03/16/2024 at 0300. Downtime documentation of patient's care, including medication administrations, has been reconciled in the electronic record per guidelines. Refer to the
patient's paper chart under the miscellaneous tab to see printed paper medication records and downtime forms.
[2024-03-16 05:24] VITALS: BMI 34.9
[2024-03-16 07:00] VITALS: BP 138/64
[2024-03-16 07:00] LABS: Hematocrit 32.4 % (37.0-47.0); Hemoglobin 11.1 g/dL (12.0-16.0); Mean Corp Hgb Conc. 34.3 g/dL (33.0-37.0); Mean Corpuscular Hgb 30.8 pg (27.0-31.0); Mean Platelet Volume 12.6 fL (7.4-10.4); Platelet Count 188 10^3/uL (130-400); Red Cell Dist. Width 13.1 % (11.5-14.5)
--- NOTE | 2024-03-16 07:07 | W.PN.HOSP.TC ---
Today's Communication/Plan
-
bronchodilators steroid taper as per pulm
ICS antitussives mucinex
Glycemic Control
Trial low dose Trazodone bedtime for sleep
Assessment / Plan
Assessment / Plan
Physical Exam
General: appears comfortable at rest
HEENT: NormoCephalic and Anicteric
Respiratory: Clear to auscultation cough persists
Cardiac: S1/S2 and Regular Rhythm
GI: Soft and Non Tender
Musculoskeletal: No Clubbing, No Cyanosis, No Edema
Skin: Warm and Dry
Neuro: Awake, Alert, Oriented and Nonfocal/grossly intact
Psych: Calm
78F bronchitis cough variant asthma migraines CAD Essential Tremors DM p/w worsening sob cough wheezing past day. Previously on prednisone taper for asthma exacerbation. Patient noted return/worsening of symptoms a few days following taper
completion. Symptoms improved with steroids bronchodilators but remain debilitating/distressing. VSS afebrile on room air. CXR noted no acute cardiopulmonary processes. Labs noted wbc 18.1 and hyperglycemia likely steroid induced.
Acute Asthma/COPD Exacerbation
-Consult Pulmonary appreciated Hi dose ICS mucinex scheduled Tessalon Perles
-Continue Decadron, steroid taper as per pulm
-Continue Duoneb QID and PRN
-Doxycycline 100 mg BID for anti-inflammatory effects (Azithromycin not used d/t QT prolongation)
Coronary Artery Disease s/p Stent
-Continue aspirin
Essential Hypertension
-Continue amlodipine and triamterene/HCTZ
Hyperlipidemia
-Continue atorvastatin and ezetimibe
Diabetes Mellitus, Type II
Steroid Induced Hyperglycemia
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
medium dose sliding scale
#Insomnia/poor sleep
likely exacerbated vs 2/2 steroids
trial low dose Trazodone HS
Diabetic Neuropathy
-Continue gabapentin
CKD Stage III
-Creatinine at baseline
Vestibular Migraine
-Continue propranolol and topiramate
DVT proph: SC Heparin
Code Status: Full Code
I spent a total of 58 minutes with the patient or on the floor. More than 50% of this time involved counseling and coordination of care.
Anticipated Discharge: 24 - 48 hours
Subjective/Interval History
-
Date of Service: March 16, 2024
Notes some improvement to symptoms. Noted poor sleep overnight.
Objective Data
-
Labs:
Laboratory Results
03/16/24
06:33
WBC 15.0 H
Hgb 11.1 L
Hct 32.4 L
Plt Count 188
Sodium Pending
Potassium Pending
Chloride Pending
Carbon Dioxide Pending
BUN Pending
Creatinine Pending
Glucose Pending
Calcium Pending
Vital Signs:
Vital Signs
Temp Pulse Resp BP Pulse Ox
98.3 F 65 18 133/59 97
03/15/24 23:00 03/15/24 23:00 03/15/24 23:00 03/15/24 23:00 03/15/24 23:00
I&O
03/15/24 03/16/24 03/17/24
06:59 06:59 06:59
Intake Total 480 / 480 1440 / 1440
Balance 480 / 480 1440 / 1440
[2024-03-16] MEDS: FLOVENT 220MCG 2 PUFF INH ×2 (07:28→20:22)
[2024-03-16] MEDS: DUONEB 3 ML INH ×4 (07:28→20:22)
[2024-03-16 07:40] LABS: Blood Urea Nitrogen 38 mg/dl (7-17); Calcium 9.3 mg/dl (8.4-10.2); Carbon Dioxide 22 mmol/L (22-30); Chloride 102 mmol/L (98-107); Estimated Creatinine Clearance 36 ml/min; Glucose 385 mg/dl (70-99); Magnesium 1.8 mg/dl (1.6-2.3); Phosphorus 4.1 mg/dl (2.5-4.5); Potassium 4.2 mmol/L (3.5-5.1); Sodium 134 mmol/L (135-145); eGFR 38.27
[2024-03-16 08:01] LABS: Glucose - Point of Care 391 mg/dl (70-99)
[2024-03-16] MEDS: NOVOLOG FLEXPEN 10 UNITS SC (08:02)
[2024-03-16] MEDS: NOVOLOG FLEXPEN-MODERATE RESISTANCE 9 UNITS SC (08:02)
[2024-03-16] MEDS: ZETIA 10 MG PO (08:03)
[2024-03-16] MEDS: TOPAMAX 50 MG PO ×2 (08:03→20:17)
[2024-03-16] MEDS: PROZAC 40 MG PO (08:03)
[2024-03-16] MEDS: DYAZIDE 1 CAPSULE PO (08:03)
[2024-03-16] MEDS: LANTUS 0.140000000000000013 UNITS SC (08:03)
[2024-03-16] MEDS: NORVASC 5 MG PO (08:04)
[2024-03-16] MEDS: TESSALON PERLES 200 MG PO ×4 (08:04→23:16)
[2024-03-16] MEDS: VIBRAMYCIN 100 MG PO ×2 (08:04→20:17)
[2024-03-16] MEDS: HEPARIN 5000 UNITS SC ×4 (08:04→23:15)
[2024-03-16] MEDS: ASPIR LOW (ENTERIC COATED) 81 MG PO (08:04)
[2024-03-16] MEDS: MUCINEX 1200 MG PO ×2 (08:04→20:17)
[2024-03-16] MEDS: DECADRON 4 MG IV ×3 (08:05→20:16)
--- NOTE | 2024-03-16 08:43 | PN.DE.MGMTRT ---
Insulin Management
- -
03/16/2024 Diabetes Management Consult Follow up
Patient admitted 03/14 with cough, wheezing, asthma, COPD exacerbation. PMH CAD, tremor, type 2 diabetes, HTN, HLD, CKD III. Prior to admission was taking lantus 8 units BID with ss novolog @ each meal. A1C is 10%, cr 1.2, eGFR 46.05. Patient
states she sees Rick MILLER at [facility] for Diabetes Care. She uses a Amber for monitoring.
Patient is awake alert, resting in bed.
Steroids continue, Dexamethasone 4 mg Q 8 hours, glucose up to 459 yesterday. Received lantus 8 units in AM with 10 units novolog and moderate corrective insulin AC. Received 14 units lantus @ hs, fasting glucose this AM 391. Will increase BID
lantus to 20 units and AC novolog to 15 units with low corrective. Patient is 5'4, will change diet from 2000 to 1600 calories.
Discussed insulin doses with patients nurse.
Will follow
Diabetes History
- -
Type of Diabetes: 2 requiring insulin
Pre-Admission Diabetes Regimen
03/15/24 03/16/24
07:47 06:33
Creatinine 1.2 H 1.4 H
Lab Results
Hemoglobin A1c 10.0 % (4.0-5.6) H 03/15/24 07:47
Insulin Pump Settings
IP Diabetes Regimen
03/15/24 03/15/24 03/15/24
07:47 12:00 12:32
Glucose 277 H 441 H
POC Glucose 459 H*
03/15/24 03/15/24 03/16/24
16:47 21:02 06:33
Glucose 385 H
POC Glucose 357 H 267 H
03/16/24
08:00
Glucose
POC Glucose 391 H
Meal type: Dinner
Meal type: Lunch
Meal type: Breakfast
Amount consumed: 100%
Amount consumed: 100%
Amount consumed: 100%
Patient Education
[2024-03-16] MEDS: NOVOLOG FLEXPEN 15 UNITS SC ×2 (12:24→17:26)
[2024-03-16 12:25] LABS: Glucose - Point of Care 272 mg/dl (70-99)
[2024-03-16] MEDS: NOVOLOG FLEXPEN-LOW RESISTANCE 3 UNITS SC (12:25)
--- NOTE | 2024-03-16 12:44 | W.PN.PUL3 ---
Today's Communication / Plan
-
Cough better today, per patient report, seems to do better with HFA
Taper IV steroids to q12, can likely change to PO in next 24 hours if improving
Encouraged OOB/ambulation/IS
Insomnia overnight, continue CPAP
Anxiety if likely a factor in both her cough/insomnia complaints
Outpatient FU recommended when able to assess for discharge
Assessment
-
78 year old female with a past medical history of bronchitis, cough variant asthma, coronary artery disease and diabetes who presents for acutely worsening shortness or breathe and cough x 1 day. She states she has been using her nebulizer and
albuterol but felt paradoxical throat closure upon completion of treatment. She follows with Dr Wellington in office. Prior PFTs showing mild restriction. We are consulted for eval.
AE Asthma
Acute on chronic cough
VCD suspected, given closure of airway, cannot rule out anxiety
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
Cough variant asthma
Follow with Dr Wellington
Persistent cough 08/2018
Status post hospitalization late October 2012 for intractable cough exacerbation of asthma
Allergies to pollen and dust
Restrictive Lung Disease, TLC 3.71 L or 73% of predicted
Influenza A 10/2018
History of chronic bronchitis
Bronchitis 04/2017.
Acute bronchitis 05/2016
History of focal pleural thickening
CAD w/ History of percutaneous coronary intervention
Promus stent mid circumflex into 2015
Fibromyalgia/Chronic pain syndrome
Gastroparesis
HTN
HLD
IDDM
CKD (chronic kidney disease), stage III
Status post left TKA
History of osteoarthritis status post right TKA in 01/2008
Popliteal DVT status post prior right TKA
Gastroesophageal reflux disease
SIDDHARTHA
Obesity BMI 34
SLE
Meniere's Disease
Polymyalgia rheumatica, Dr Roe
Plan
No oxygen was needed on admission, currently saturating 98% on RA
Prior history of lung disease is noted including cough variant asthma, allergies, obesity, SIDDHARTHA on CPAP, RLD
Follows with Dr Wellington
Suspect patient has underlying VCD as well given her description of events
CXR obtained indicating NAD
Other imaging reviewed in past also clear
Will start treatment with high dose ICS, change neb to inhaler--she feels slight improvement
Continue albuterol nebs PRN
Placed on IV steroids, will taper in next 24 hours--taper to q12 today
We discussed pathophys of cough
Continue Tessalon Perles scheduled/Mucinex high dose
No changes in meds
No ECHO results in past
Has history of HTN, not on ACEI
PND may be a factor with allergies
GERD-cont PPI from home
HOB elevation
SIDDHARTHA-resume home CPAP
Weight loss measures recommended
Obesity contributing to respiratory symptoms
Evaluation next 24 hours
Diagnostic Data
CXR 03/14/24: No acute cardiopulmonary process.
12/29/23- No acute disease of the chest
Subjective Data
-
Date of Service:
Date of Service: March 16, 2024
Chief Complaint: Pulmonary Follow Up
Subjective:
she feels slightly better
less cough but had issue sleeping overnight with nightmares
Objective Data
Data Reviewed
Vital Signs / I&O / Oxygen:
Vital Signs
Temp Pulse Resp BP Pulse Ox
98.4 F 55 18 138/64 97
03/16/24 07:00 03/16/24 11:13 03/16/24 11:13 03/16/24 07:00 03/16/24 11:13
Intake and Output
03/15/24 03/16/24 03/17/24
06:59 06:59 06:59
Intake Total 480 / 480 1440 / 1440
Balance 480 / 480 1440 / 1440
SaO2 97
Physical Exam
General: Comfortable and Other (NAD)
HEENT: Normocephalic, Anicteric and Moist Mucous Membranes
Cardiovascular: S1-S2 and Regular Rhythm
Respiratory: Clear, Non-Labored Respirations and Other (cough noted)
GI: Soft, Non Distended and Non Tender
Neurology: Awake, Alert, Oriented, AO x 3, No Motor Deficits and Other (anxious)
Skin: Warm and Dry
Labs/Micro/Reports
Lab Data
03/16/24 06:33
03/16/24 06:33
[2024-03-16 15:00] VITALS: BP 125/52
--- NOTE | 2024-03-16 15:11 | CM ---
CM reviewed chart, per PT, no skilled PT need. Patient remains on IV steroids. CM will continue to follow for all discharge planning needs.
Plan; home, no anticipated needs.
[2024-03-16 17:21] LABS: Glucose - Point of Care 246 mg/dl (70-99)
[2024-03-16] MEDS: INDERAL LA 80 MG PO (17:25)
[2024-03-16] MEDS: NEURONTIN 300 MG PO (17:25)
[2024-03-16] MEDS: NOVOLOG FLEXPEN-LOW RESISTANCE 2 UNITS SC (17:27)
[2024-03-16 21:15] LABS: Glucose - Point of Care 247 mg/dl (70-99)
[2024-03-16] MEDS: LANTUS 0.200000000000000011 UNITS SC (21:38)
[2024-03-16] MEDS: DESYREL 25 MG PO (21:39)
[2024-03-16] MEDS: LIPITOR 80 MG PO (21:40)
[2024-03-16] MEDS: SOMA 350 MG PO (21:40)
[2024-03-16] MEDS: PROTONIX 40 MG PO (21:40)
[2024-03-16 23:00] VITALS: BP 105/69
[2024-03-17 05:00] VITALS: BMI 35.1
[2024-03-17 07:00] VITALS: BP 121/51
--- NOTE | 2024-03-17 07:16 | W.PN.HOSP.TC ---
Today's Communication/Plan
-
bronchodilators steroid taper as per pulm
ICS antitussives mucinex
Glycemic Control
gentle IV hydration
Assessment / Plan
Assessment / Plan
Physical Exam
General: appears comfortable at rest
HEENT: NormoCephalic and Anicteric
Respiratory: Clear to auscultation cough persists
Cardiac: S1/S2 and Regular Rhythm
GI: Soft and Non Tender
Musculoskeletal: No Clubbing, No Cyanosis, No Edema
Skin: Warm and Dry
Neuro: Awake, Alert, Oriented and Nonfocal/grossly intact
Psych: Calm
78F bronchitis cough variant asthma migraines CAD Essential Tremors DM p/w worsening sob cough wheezing past day. Previously on prednisone taper for asthma exacerbation. Patient noted return/worsening of symptoms a few days following taper
completion. Symptoms improved with steroids bronchodilators but remain debilitating/distressing. VSS afebrile on room air. CXR noted no acute cardiopulmonary processes. Labs noted wbc 18.1 and hyperglycemia likely steroid induced.
Acute Asthma/COPD Exacerbation
-Consult Pulmonary appreciated Hi dose ICS mucinex scheduled Tessalon Perles
-Continue Decadron, steroid taper as per pulm
-Continue Duoneb QID and PRN
-Doxycycline 100 mg BID for anti-inflammatory effects (Azithromycin not used d/t QT prolongation)
Coronary Artery Disease s/p Stent
-Continue aspirin
Essential Hypertension
-Continue amlodipine and triamterene/HCTZ
Hyperlipidemia
-Continue atorvastatin and ezetimibe
Diabetes Mellitus, Type II
Steroid Induced Hyperglycemia
DM [employer]IAL [employer] REPORTER consult appreciated Lantus 24 BID Novolog 18U AC
medium dose sliding scale
#Insomnia/poor sleep
likely exacerbated vs 2/2 steroids
trial low dose Trazodone HS, good response noted
Diabetic Neuropathy
-Continue gabapentin
Mild TISH on CKD Stage III
-Initial Cr 1.2 increased to 1.6 over the course of hospitalization
-gentle IV hydration 60 cc/h started
Vestibular Migraine
-Continue propranolol and topiramate
03/17 episode choking meal this morning self limited
speech eval appreciated, episode likely related to xerostomia, excess mucus and known esophageal issues, recommended small bites/chew food thoroughly, remains appropriate for regular diet,
PT/OT eval's appreciated
DVT proph: SC Heparin
Code Status: Full Code
I spent a total of 58 minutes with the patient or on the floor. More than 50% of this time involved counseling and coordination of care.
Anticipated Discharge: 24 - 48 hours
Subjective/Interval History
-
Date of Service: March 17, 2024
Reports good response to trazodone last night, slept well. Reports worsening cough.
Objective Data
-
Labs:
Laboratory Results
03/17/24
07:10
WBC Pending
Hgb Pending
Hct Pending
Plt Count Pending
Sodium Pending
Potassium Pending
Chloride Pending
Carbon Dioxide Pending
BUN Pending
Creatinine Pending
Glucose Pending
Calcium Pending
Vital Signs:
Vital Signs
Temp Pulse Resp BP Pulse Ox
98.9 F 83 18 105/69 96
03/16/24 23:00 03/16/24 23:00 03/16/24 23:00 03/16/24 23:00 03/16/24 23:00
I&O
03/16/24 03/17/24 03/18/24
06:59 06:59 06:59
Intake Total 1440 / 1440 1380 / 1380
Balance 1440 / 1440 1380 / 1380
[2024-03-17] MEDS: DUONEB 3 ML INH ×4 (07:26→20:03)
[2024-03-17] MEDS: FLOVENT 220MCG 2 PUFF INH (07:26)
[2024-03-17 07:43] LABS: Glucose - Point of Care 254 mg/dl (70-99)
[2024-03-17 07:47] LABS: Hematocrit 32.4 % (37.0-47.0); Hemoglobin 11.3 g/dL (12.0-16.0); Mean Corp Hgb Conc. 34.9 g/dL (33.0-37.0); Mean Corpuscular Volume 88.8 fL (81.0-99.0); Mean Platelet Volume 12.6 fL (7.4-10.4); Platelet Count 193 10^3/uL (130-400); Red Blood Cell Count 3.65 10^6/uL (4.20-5.40); Red Cell Dist. Width 12.9 % (11.5-14.5); White Blood Cell Count 12.7 10^3/uL (4.8-10.8)
[2024-03-17 08:06] LABS: Blood Urea Nitrogen 48 mg/dl (7-17); Calcium 9.2 mg/dl (8.4-10.2); Carbon Dioxide 23 mmol/L (22-30); Chloride 102 mmol/L (98-107); Estimated Creatinine Clearance 31 ml/min; Glucose 249 mg/dl (70-99); Magnesium 1.8 mg/dl (1.6-2.3); Phosphorus 4.3 mg/dl (2.5-4.5); Potassium 3.8 mmol/L (3.5-5.1); Sodium 134 mmol/L (135-145)
--- NOTE | 2024-03-17 08:22 | PN.DE.MGMTRT ---
Insulin Management
- -
03/16/2024 Diabetes Management Consult Follow up
Patient admitted 03/14 with cough, wheezing, asthma, COPD exacerbation. PMH CAD, tremor, type 2 diabetes, HTN, HLD, CKD III. Prior to admission was taking lantus 8 units BID with ss novolog @ each meal. A1C is 10%, cr 1.6, eGFR 32.60. Patient
states she sees Rick MILLER at [facility]. She uses a Amber for monitoring.
Patient is awake alert, resting in bed.
Steroids continue, Dexamethasone 4 mg Q 12 hours, glucose improved from a high of 459 on the to 272 yesterday. Received lantus 14 units in AM with 10 units novolog and moderate corrective insulin AC. Received 20 units lantus @ hs, fasting
glucose this AM 254. Will increase BID lantus to 24 units and AC novolog to 18 units with low corrective.
Discussed insulin doses with patients nurse.
Will follow
Diabetes History
- -
Type of Diabetes: 2 requiring insulin
Pre-Admission Diabetes Regimen
03/17/24
07:10
Creatinine 1.6 H
Lab Results
Hemoglobin A1c 10.0 % (4.0-5.6) H 03/15/24 07:47
Insulin Pump Settings
IP Diabetes Regimen
03/16/24 03/16/24 03/16/24
12:23 17:20 21:12
Glucose
POC Glucose 272 H 246 H 247 H
03/17/24 03/17/24
07:10 07:41
Glucose 249 H
POC Glucose 254 H
Meal type: Dinner
Meal type: Lunch
Meal type: Breakfast
Amount consumed: 100%
Amount consumed: 100%
Amount consumed: 100%
Patient Education
[2024-03-17] MEDS: NOVOLOG FLEXPEN-LOW RESISTANCE 3 UNITS SC (08:28)
[2024-03-17] MEDS: LANTUS 0.200000000000000011 UNITS SC (08:29)
[2024-03-17] MEDS: NOVOLOG FLEXPEN 15 UNITS SC (08:30)
[2024-03-17] MEDS: TOPAMAX 50 MG PO ×2 (08:30→19:35)
[2024-03-17] MEDS: ASPIR LOW (ENTERIC COATED) 81 MG PO (08:30)
[2024-03-17] MEDS: VIBRAMYCIN 100 MG PO ×2 (08:30→19:35)
[2024-03-17] MEDS: MUCINEX 1200 MG PO ×2 (08:30→19:35)
[2024-03-17] MEDS: HEPARIN 5000 UNITS SC ×3 (08:31→23:20)
[2024-03-17] MEDS: DYAZIDE 1 CAPSULE PO (08:31)
[2024-03-17] MEDS: TESSALON PERLES 200 MG PO ×2 (08:31→15:13)
[2024-03-17] MEDS: ZETIA 10 MG PO (08:31)
[2024-03-17] MEDS: PROZAC 40 MG PO (08:31)
[2024-03-17] MEDS: NORVASC 5 MG PO (08:31)
[2024-03-17] MEDS: DECADRON 4 MG IV ×2 (08:32→19:35)
--- NOTE | 2024-03-17 09:32 | W.PN.PUL3 ---
Today's Communication / Plan
-
Change flovent to advair HFA
Can transition to PO steroids tomorrow if better
Change Tessalon to QID as she feels she would do better with more frequent dosing
Encouraged OOB/PT
Change nebs to PRN
Assessment
-
78 year old female with a past medical history of bronchitis, cough variant asthma, coronary artery disease and diabetes who presents for acutely worsening shortness or breathe and cough x 1 day. She states she has been using her nebulizer and
albuterol but felt paradoxical throat closure upon completion of treatment. She follows with Dr Wellington in office. Prior PFTs showing mild restriction. We are consulted for eval.
AE Asthma
Acute on chronic cough
VCD suspected, given closure of airway, cannot rule out anxiety
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
Cough variant asthma
Follow with Dr Wellington
Persistent cough 08/2018
Status post hospitalization late October 2012 for intractable cough exacerbation of asthma
Allergies to pollen and dust
Restrictive Lung Disease, TLC 3.71 L or 73% of predicted
Influenza A 10/2018
History of chronic bronchitis
Bronchitis 04/2017.
Acute bronchitis 05/2016
History of focal pleural thickening
CAD w/ History of percutaneous coronary intervention
Promus stent mid circumflex into 2015
Fibromyalgia/Chronic pain syndrome
Gastroparesis
HTN
HLD
IDDM
CKD (chronic kidney disease), stage III
Status post left TKA
History of osteoarthritis status post right TKA in 01/2008
Popliteal DVT status post prior right TKA
Gastroesophageal reflux disease
SIDDHARTHA
Obesity BMI 34
SLE
Meniere's Disease
Polymyalgia rheumatica, Dr Roe
Plan
No oxygen was needed on admission, currently saturating 98% on RA
Prior history of lung disease is noted including cough variant asthma, allergies, obesity, SIDDHARTHA on CPAP, RLD
Follows with Dr Wellington
Suspect patient has underlying VCD as well given her description of events
CXR obtained indicating NAD
Other imaging reviewed in past also clear
Continue ICS, she does feel improvement, we will change to Advair HFA
Objectively her cough has improved though she subjectively states worse
Continue albuterol nebs PRN
Placed on IV steroids, will taper in next 24 hours--taper to q12-- she notes this made her worse
Will await to transition to PO tomorrow
We discussed pathophys of cough
Continue Tessalon Perles scheduled/Mucinex high dose--change dosing to QID
No changes in meds
No ECHO results in past
Has history of HTN, not on ACEI
PND may be a factor with allergies
GERD-cont PPI from home
HOB elevation
SIDDHARTHA-resume home CPAP
Weight loss measures recommended
Obesity contributing to respiratory symptoms
Evaluation next 24 hours
Diagnostic Data
CXR 03/14/24: No acute cardiopulmonary process.
12/29/23- No acute disease of the chest
Subjective Data
-
Date of Service:
Date of Service: March 17, 2024
Chief Complaint: Pulmonary Follow Up
Subjective:
cough is objectively better though patient complaints of coughing from an turk[place] muffin this AM
remains stable on room air
Objective Data
Data Reviewed
Vital Signs / I&O / Oxygen:
Vital Signs
Temp Pulse Resp BP Pulse Ox
97.9 F 51 18 121/51 99
03/17/24 07:00 03/17/24 07:29 03/17/24 07:29 03/17/24 07:00 03/17/24 07:29
Intake and Output
03/16/24 03/17/24 03/18/24
06:59 06:59 06:59
Intake Total 1440 / 1440 1380 / 1380
Balance 1440 / 1440 1380 / 1380
SaO2 99
Physical Exam
General: Comfortable and Other (NAD)
HEENT: Normocephalic, Anicteric and Moist Mucous Membranes
Cardiovascular: S1-S2 and Regular Rhythm
Respiratory: Clear, Non-Labored Respirations and Other (cough noted)
GI: Soft, Non Distended and Non Tender
Neurology: Awake, Alert, Oriented, AO x 3, No Motor Deficits and Other (anxious)
Skin: Warm and Dry
Labs/Micro/Reports
Lab Data
03/17/24 07:10
03/17/24 07:10
[2024-03-17 11:50] LABS: Glucose - Point of Care 170 mg/dl (70-99)
[2024-03-17] MEDS: NSS 1000 IV (11:52)
[2024-03-17] MEDS: NOVOLOG FLEXPEN 18 UNITS SC ×2 (11:59→17:01)
[2024-03-17] MEDS: NOVOLOG FLEXPEN-LOW RESISTANCE 1 UNITS SC (12:00)
--- NOTE | 2024-03-17 12:11 | PTOTSP ---
Speech Therapy Assessment
Oral/pharyngeal swallow deemed within functional limits with no gross signs of aspiration and no complaints or symptoms of pharyngeal stasis. Given density and dryness of [place] muffin, the episode this am likely related to xerostomia, excess mucus
and known esophageal issues.
Recommend:
1. Continue Regular solids and thin liquids with patient selecting appropriate items.
2. Meds as tolerated.
3. Small bites/chew food thoroughly.
4. Reflux precautions.
5. If patient has more episodes of pharyngeal stasis/choking, then VSE would be appropriate.
Skilled ST not indicated. Reconsult as needed.
[2024-03-17 13:56] VITALS: BP 127/58; PULSE 56; O2SAT 97
[2024-03-17 15:00] VITALS: BP 120/67
[2024-03-17 15:15] VITALS: BP 141/66; PULSE 55; O2SAT 96
--- NOTE | 2024-03-17 15:22 | PTOTSP ---
pt currently requires no assistance to complete simple ADLs, functional transfers, ambulation. no acute OT needs identified at this time, will sign off.
--- NOTE | 2024-03-17 16:18 | CM ---
Patient seen doing breathing treatment, chart reviewed. No PT need, plan likely home no needs. CM will continue to follow for all discharge planning needs.
Plan; home no need anticipated.
[2024-03-17 16:43] LABS: Glucose - Point of Care 210 mg/dl (70-99)
[2024-03-17] MEDS: DUONEB INH (16:46)
[2024-03-17] MEDS: NOVOLOG FLEXPEN-LOW RESISTANCE 2 UNITS SC (17:02)
[2024-03-17] MEDS: NEURONTIN 300 MG PO (17:03)
[2024-03-17] MEDS: TESSALON PERLES 100 MG PO ×2 (17:03→21:37)
[2024-03-17] MEDS: INDERAL LA 80 MG PO (17:03)
[2024-03-17 19:36] LABS: Glucose - Point of Care 190 mg/dl (70-99)
[2024-03-17] MEDS: LANTUS 0.239999999999999991 UNITS SC (19:36)
[2024-03-17] MEDS: ADVAIR HFA 230/21 MCG INHALER 2 PUFF INH (20:02)
[2024-03-17 21:10] LABS: Glucose - Point of Care 208 mg/dl (70-99)
[2024-03-17] MEDS: SOMA 350 MG PO (21:37)
[2024-03-17] MEDS: LIPITOR 80 MG PO (21:37)
[2024-03-17] MEDS: DESYREL 25 MG PO (21:37)
[2024-03-17] MEDS: PROTONIX 40 MG PO (21:37)
[2024-03-17 23:00] VITALS: BP 122/59
[2024-03-18 03:42] VITALS: BMI 35.7
[2024-03-18 06:07] LABS: Hematocrit 31.4 % (37.0-47.0); Hemoglobin 10.7 g/dL (12.0-16.0); Mean Corp Hgb Conc. 34.1 g/dL (33.0-37.0); Mean Platelet Volume 12.6 fL (7.4-10.4); Platelet Count 147 10^3/uL (130-400); Red Blood Cell Count 3.45 10^6/uL (4.20-5.40); Red Cell Dist. Width 12.7 % (11.5-14.5); White Blood Cell Count 9.8 10^3/uL (4.8-10.8)
[2024-03-18 06:37] LABS: Blood Urea Nitrogen 57 mg/dl (7-17); Calcium 8.8 mg/dl (8.4-10.2); Carbon Dioxide 19 mmol/L (22-30); Chloride 105 mmol/L (98-107); Estimated Creatinine Clearance 32 ml/min; Glucose 279 mg/dl (70-99); Magnesium 1.7 mg/dl (1.6-2.3); Phosphorus 4.5 mg/dl (2.5-4.5); Potassium 4.3 mmol/L (3.5-5.1); Sodium 134 mmol/L (135-145)
[2024-03-18 07:10] VITALS: BP 145/72
[2024-03-18] MEDS: DUONEB 3 ML INH ×4 (07:13→20:11)
[2024-03-18] MEDS: ADVAIR HFA 230/21 MCG INHALER 2 PUFF INH ×2 (07:13→20:11)
--- NOTE | 2024-03-18 07:19 | W.PN.HOSP.TC ---
Today's Communication/Plan
-
bronchodilators steroid taper as per pulm
ICS antitussives mucinex
Glycemic Control
gentle IV hydration
Assessment / Plan
Assessment / Plan
Physical Exam
General: appears comfortable at rest
HEENT: NormoCephalic and Anicteric
Respiratory: Clear to auscultation cough persists
Cardiac: S1/S2 and Regular Rhythm
GI: Soft and Non Tender
Musculoskeletal: No Clubbing, No Cyanosis, No Edema
Skin: Warm and Dry
Neuro: Awake, Alert, Oriented and Nonfocal/grossly intact
Psych: Calm
78F bronchitis cough variant asthma migraines CAD Essential Tremors DM p/w worsening sob cough wheezing past day. Previously on prednisone taper for asthma exacerbation. Patient noted return/worsening of symptoms a few days following taper
completion. Symptoms improved with steroids bronchodilators but remain debilitating/distressing. VSS afebrile on room air. CXR noted no acute cardiopulmonary processes. Labs noted wbc 18.1 and hyperglycemia likely steroid induced.
Acute Asthma/COPD Exacerbation
-Consult Pulmonary appreciated Hi dose ICS mucinex scheduled Tessalon Perles
-Continue Decadron, steroid taper as per pulm
-Continue Duoneb QID and PRN
-Doxycycline 100 mg BID for anti-inflammatory effects (Azithromycin not used d/t QT prolongation) planned for 5 days tx
Coronary Artery Disease s/p Stent
-Continue aspirin
Essential Hypertension
-Continue amlodipine and triamterene/HCTZ
Hyperlipidemia
-Continue atorvastatin and ezetimibe
Diabetes Mellitus, Type II
Steroid Induced Hyperglycemia
DM [employer]PER[employer]PAR[employer] consult appreciated Lantus 24 BID Novolog 18U AC
medium dose sliding scale
#Insomnia/poor sleep
likely exacerbated vs 2/2 steroids
trial low dose Trazodone HS, good response noted
Diabetic Neuropathy
-Continue gabapentin
Mild TISH on CKD Stage III
-Initial Cr 1.2 increased to 1.6 over the course of hospitalization
-cont gentle IV hydration 70 cc/h
- monitor renal function
Vestibular Migraine
-Continue propranolol and topiramate
03/17 episode choking meal this morning self limited
speech eval appreciated, episode likely related to xerostomia, excess mucus and known esophageal issues, recommended small bites/chew food thoroughly, remains appropriate for regular diet,
PT/OT eval's appreciated Home services vs Home no needs
DVT proph: SC Heparin
Code Status: Full Code
I spent a total of 58 minutes with the patient or on the floor. More than 50% of this time involved counseling and coordination of care.
Anticipated Discharge: 24 - 48 hours
Subjective/Interval History
-
Date of Service: March 18, 2024
Reports overall improvement in symptoms. Cough persists but less. Denies new acute issues at this time.
Objective Data
-
Labs:
Laboratory Results
03/18/24
05:43
WBC 9.8
Hgb 10.7 L
Hct 31.4 L
Plt Count 147 D
Sodium 134 L
Potassium 4.3
Chloride 105
Carbon Dioxide 19 L
BUN 57 H
Creatinine 1.6 H
Glucose 279 H
Calcium 8.8
Vital Signs:
Vital Signs
Temp Pulse Resp BP Pulse Ox
98 F 57 14 122/59 96
03/17/24 23:00 03/18/24 07:14 03/18/24 07:14 03/17/24 23:00 03/18/24 07:14
I&O
03/17/24 03/18/24 03/19/24
06:59 06:59 06:59
Intake Total 1380 / 1380 1919
Balance 1380 / 1380 1919
--- NOTE | 2024-03-18 07:34 | PN.DE.MGMTRT ---
Insulin Management
- -
03/18/2024: Diabetes Management F/U:
Patient admitted 03/14 with cough and wheezing due to COPD and Asthma exacerbation.
PMH: CAD, HTN, HLD, CKD III, Tremors, T2DM. 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
Current A1C is 10%, Cr 1.6, eGFR 32.60. Patient states she sees Rick MILLER at [facility] for [facility]. She uses a Amber for monitoring.
Patient is awake A/O x3, resting in bed, offers no complaints, able to discuss diabetes management.
Remains on Steroids-Dexamethasone 4 mg Q 12 hours, glucose improved from a high 400s but remains elevated >200.
Received Lantus 24 units @ HS, FBG 279 this. Will increase BID Lantus to 28 units and AC NovoLog to 20 units with low corrective.
Discussed insulin doses with patient and Pt's Nurse. Will closely follow and make further needed adjustment.
Diabetes History
- -
Type of Diabetes: 2 requiring insulin
Pre-Admission Diabetes Regimen
03/17/24 03/18/24
07:10 05:43
Creatinine 1.6 H 1.6 H
Lab Results
Hemoglobin A1c 10.0 % (4.0-5.6) H 03/15/24 07:47
Insulin Pump Settings
IP Diabetes Regimen
03/17/24 03/17/24 03/17/24
07:10 07:41 11:49
Glucose 249 H
POC Glucose 254 H 170 H
03/17/24 03/17/24 03/17/24
16:41 19:34 21:09
Glucose
POC Glucose 210 H 190 H 208 H
03/18/24
05:43
Glucose 279 H
POC Glucose
Meal type: Dinner
Meal type: Lunch
Meal type: Breakfast
Amount consumed: 100%
Amount consumed: 100%
Amount consumed: 100%
Patient Education
[2024-03-18 08:08] LABS: Glucose - Point of Care 270 mg/dl (70-99)
[2024-03-18] MEDS: NOVOLOG FLEXPEN-LOW RESISTANCE 3 UNITS SC (08:48)
[2024-03-18] MEDS: NOVOLOG FLEXPEN 20 UNITS SC ×2 (08:49→12:43)
[2024-03-18] MEDS: NSS 1000 IV (08:50)
[2024-03-18] MEDS: LANTUS 0.280000000000000027 UNITS SC ×2 (08:50→20:34)
[2024-03-18] MEDS: MUCINEX 1200 MG PO ×2 (08:50→20:28)
[2024-03-18] MEDS: VIBRAMYCIN 100 MG PO ×2 (08:51→20:28)
[2024-03-18] MEDS: DYAZIDE 1 CAPSULE PO (08:51)
[2024-03-18] MEDS: ASPIR LOW (ENTERIC COATED) 81 MG PO (08:51)
[2024-03-18] MEDS: DECADRON 4 MG IV (08:51)
[2024-03-18] MEDS: TESSALON PERLES 100 MG PO ×4 (08:51→21:37)
[2024-03-18] MEDS: NORVASC 5 MG PO (08:51)
[2024-03-18] MEDS: TOPAMAX 50 MG PO ×2 (08:52→20:29)
[2024-03-18] MEDS: ZETIA 10 MG PO (08:52)
[2024-03-18] MEDS: PROZAC 40 MG PO (08:52)
[2024-03-18] MEDS: HEPARIN 5000 UNITS SC ×3 (08:52→23:11)
[2024-03-18] MEDS: NOVOLOG FLEXPEN SC ×2 (08:54→17:22)
--- NOTE | 2024-03-18 09:12 | W.PN.PUL3 ---
Today's Communication / Plan
-
Cough better, continue juan malave QID
Will change her IV to PO prednisone today, can taper at discharge
Encouraged OOB, PT/ambulation
Hopefully can discharge if doing well in next 24 hours
We discussed outpatient pulmonary FU
Assessment
-
78 year old female with a past medical history of bronchitis, cough variant asthma, coronary artery disease and diabetes who presents for acutely worsening shortness or breathe and cough x 1 day. She states she has been using her nebulizer and
albuterol but felt paradoxical throat closure upon completion of treatment. She follows with Dr Wellington in office. Prior PFTs showing mild restriction. We are consulted for eval.
AE Asthma
Acute on chronic cough
VCD suspected, given closure of airway, cannot rule out anxiety
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
Cough variant asthma
Follow with Dr Wellington
Persistent cough 08/2018
Status post hospitalization late October 2012 for intractable cough exacerbation of asthma
Allergies to pollen and dust
Restrictive Lung Disease, TLC 3.71 L or 73% of predicted
Influenza A 10/2018
History of chronic bronchitis
Bronchitis 04/2017.
Acute bronchitis 05/2016
History of focal pleural thickening
CAD w/ History of percutaneous coronary intervention
Promus stent mid circumflex into [id number]
Fibromyalgia/Chronic pain syndrome
Gastroparesis
HTN
HLD
IDDM
CKD (chronic kidney disease), stage III
Status post left TKA
History of osteoarthritis status post right TKA in 01/2008
Popliteal DVT status post prior right TKA
Gastroesophageal reflux disease
SIDDHARTHA
Obesity BMI 34
SLE
Meniere's Disease
Polymyalgia rheumatica, Dr Roe
Plan
No oxygen was needed on admission, currently saturating 98% on RA
Prior history of lung disease is noted including cough variant asthma, allergies, obesity, SIDDHARTHA on CPAP, RLD
Follows with Dr Wellington
Suspect patient has underlying VCD as well given her description of events
CXR obtained indicating NAD
Other imaging reviewed in past also clear
Continue ICS, she does feel improvement, continue Advair HFA
Objectively her cough has improved though she subjectively states worse
Continue albuterol nebs PRN
Placed on IV steroids, transition to PO prednisone
We discussed pathophys of cough
Continue Tessalon Perles QID
No changes in meds
No ECHO results in past
Has history of HTN, not on ACEI
PND may be a factor with allergies
GERD-cont PPI from home
HOB elevation
SIDDHARTHA-resume home CPAP
Weight loss measures recommended
Obesity contributing to respiratory symptoms
Evaluation next 24 hours
Diagnostic Data
CXR 03/14/24: No acute cardiopulmonary process.
12/29/23- No acute disease of the chest
Subjective Data
-
Date of Service:
Date of Service: March 18, 2024
Chief Complaint: Pulmonary Follow Up
Subjective:
doing better, still has cough
able to move around more
Objective Data
Data Reviewed
Vital Signs / I&O / Oxygen:
Vital Signs
Temp Pulse Resp BP Pulse Ox
97.6 F 57 14 145/72 96
03/18/24 07:10 03/18/24 07:14 03/18/24 07:14 03/18/24 07:10 03/18/24 07:14
Intake and Output
03/17/24 03/18/24 03/19/24
06:59 06:59 06:59
Intake Total 1380 / 1380 1919
Balance 1380 / 1380 1919
SaO2 96
Physical Exam
General: Comfortable and Other (NAD)
HEENT: Normocephalic, Anicteric and Moist Mucous Membranes
Cardiovascular: S1-S2 and Regular Rhythm
Respiratory: Clear, Non-Labored Respirations and Other (cough noted)
GI: Soft, Non Distended and Non Tender
Neurology: Awake, Alert, Oriented, AO x 3, No Motor Deficits and Other (anxious)
Skin: Warm and Dry
Labs/Micro/Reports
Lab Data
03/18/24 05:43
03/18/24 05:43
--- NOTE | 2024-03-18 11:14 | CM ---
Patient seen bedside, reports no needs to CM at this time, reports she is starting to feel better today. CM will continue to follow for all discharge planning needs.
Plan; home no needs when medically stable.
[2024-03-18 12:36] LABS: Glucose - Point of Care 129 mg/dl (70-99)
[2024-03-18] MEDS: NOVOLOG FLEXPEN-LOW RESISTANCE SC ×2 (12:41→17:22)
[2024-03-18 15:43] VITALS: BP 127/51
[2024-03-18 17:14] LABS: Glucose - Point of Care 86 mg/dl (70-99)
[2024-03-18] MEDS: TYLENOL 650 MG PO (17:22)
[2024-03-18] MEDS: INDERAL LA 80 MG PO (17:23)
[2024-03-18] MEDS: NEURONTIN 300 MG PO (17:23)
[2024-03-18 20:31] LABS: Glucose - Point of Care 208 mg/dl (70-99)
[2024-03-18] MEDS: PROTONIX 40 MG PO (21:37)
[2024-03-18] MEDS: DESYREL 25 MG PO (21:37)
[2024-03-18] MEDS: SOMA 350 MG PO (21:37)
[2024-03-18] MEDS: LIPITOR 80 MG PO (21:37)
[2024-03-18 23:08] VITALS: BP 119/48
[2024-03-19] MEDS: TYLENOL 650 MG PO ×2 (04:37→18:22)
[2024-03-19 06:00] VITALS: BMI 35.3
[2024-03-19 06:53] LABS: Hematocrit 35.9 % (37.0-47.0); Mean Corp Hgb Conc. 33.4 g/dL (33.0-37.0); Mean Corpuscular Hgb 30.5 pg (27.0-31.0); Mean Corpuscular Volume 91.1 fL (81.0-99.0); Mean Platelet Volume 12.8 fL (7.4-10.4); Platelet Count 173 10^3/uL (130-400); Red Blood Cell Count 3.94 10^6/uL (4.20-5.40); White Blood Cell Count 11.9 10^3/uL (4.8-10.8)
[2024-03-19 07:00] VITALS: BP 137/61
[2024-03-19 07:18] LABS: Blood Urea Nitrogen 53 mg/dl (7-17); Glucose 121 mg/dl (70-99)
[2024-03-19 07:19] LABS: Calcium 9.4 mg/dl (8.4-10.2); Carbon Dioxide 22 mmol/L (22-30); Chloride 110 mmol/L (98-107); Estimated Creatinine Clearance 32 ml/min; Magnesium 1.9 mg/dl (1.6-2.3); Phosphorus 4.7 mg/dl (2.5-4.5); Sodium 143 mmol/L (135-145)
[2024-03-19] MEDS: ADVAIR HFA 230/21 MCG INHALER 2 PUFF INH ×2 (07:28→21:02)
[2024-03-19] MEDS: DUONEB 3 ML INH ×4 (07:28→21:02)
[2024-03-19] MEDS: NSS 1000 IV ×2 (07:39→23:43)
[2024-03-19 08:11] LABS: Glucose - Point of Care 114 mg/dl (70-99)
[2024-03-19] MEDS: NOVOLOG FLEXPEN-LOW RESISTANCE SC (08:35)
[2024-03-19] MEDS: LANTUS 0.280000000000000027 UNITS SC ×2 (08:36→20:26)
[2024-03-19] MEDS: NOVOLOG FLEXPEN SC ×3 (08:36→12:55)
[2024-03-19] MEDS: HEPARIN 5000 UNITS SC ×3 (08:37→23:44)
[2024-03-19] MEDS: VIBRAMYCIN 100 MG PO (08:38)
[2024-03-19] MEDS: MUCINEX 1200 MG PO ×2 (08:38→19:59)
[2024-03-19] MEDS: DYAZIDE 1 CAPSULE PO (08:38)
[2024-03-19] MEDS: ASPIR LOW (ENTERIC COATED) 81 MG PO (08:39)
[2024-03-19] MEDS: ZETIA 10 MG PO (08:39)
[2024-03-19] MEDS: NORVASC 5 MG PO (08:39)
[2024-03-19] MEDS: TOPAMAX 50 MG PO ×2 (08:39→20:00)
[2024-03-19] MEDS: TESSALON PERLES 100 MG PO ×4 (08:39→21:50)
[2024-03-19] MEDS: DELTASONE 50 MG PO (08:39)
--- NOTE | 2024-03-19 09:52 | CM ---
Patient seen bedside.
Denies home care needs.
IMM completed.
Daughter will transport, patient will be staying at daughters home, daughter is a nurse.
Plan: home no needs.
--- NOTE | 2024-03-19 10:36 | W.PN.HOSP.TC ---
Today's Communication/Plan
-
bronchodilators steroid taper
ICS antitussives mucinex
Glycemic Control
gentle IV hydration
check CT abd oral contrast only
Assessment / Plan
Assessment / Plan
Physical Exam
General: appears comfortable at rest
HEENT: NormoCephalic and Anicteric
Respiratory: Clear to auscultation cough persists
Cardiac: S1/S2 and Regular Rhythm
GI: Soft and right side tenderness
Musculoskeletal: No Clubbing, No Cyanosis, No Edema
Skin: Warm and Dry
Neuro: Awake, Alert, Oriented and Nonfocal/grossly intact
Psych: Calm
78F bronchitis cough variant asthma migraines CAD Essential Tremors DM p/w worsening sob cough wheezing past day. Previously on prednisone taper for asthma exacerbation. Patient noted return/worsening of symptoms a few days following taper
completion. Symptoms improved with steroids bronchodilators but remain debilitating/distressing. VSS afebrile on room air. CXR noted no acute cardiopulmonary processes. Labs noted wbc 18.1 and hyperglycemia likely steroid induced.
Acute Asthma/COPD Exacerbation
-Consult Pulmonary appreciated Hi dose ICS mucinex scheduled Tessalon Perles
-Continue Decadron, steroid taper as per pulm
-Continue Duoneb QID and PRN
-Doxycycline 100 mg BID for anti-inflammatory effects (Azithromycin not used d/t QT prolongation) planned for 5 days tx
Coronary Artery Disease s/p Stent
-Continue aspirin
Essential Hypertension
-Continue amlodipine and triamterene/HCTZ
Hyperlipidemia
-Continue atorvastatin and ezetimibe
Diabetes Mellitus, Type II
Steroid Induced Hyperglycemia
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
medium dose sliding scale
#Insomnia/poor sleep
likely exacerbated vs 2/2 steroids
trial low dose Trazodone HS, good response noted
Diabetic Neuropathy
-Continue gabapentin
Mild TISH on CKD Stage III
-Initial Cr 1.2 increased to 1.6 over the course of hospitalization
-cont gentle IV hydration 70 cc/h
- monitor renal function
Vestibular Migraine
-Continue propranolol and topiramate
03/17 episode choking meal this morning self limited
speech eval appreciated, episode likely related to xerostomia, excess mucus and known esophageal issues, recommended small bites/chew food thoroughly, remains appropriate for regular diet,
03/20 Right side abd tenderness swelling
suspect side affect abd injections (heparin, insulin)
Check CT abd/pelvis oral contrast only
PT/OT eval's appreciated Home services vs Home no needs
DVT proph: SC Heparin
Code Status: Full Code
I spent a total of 56 minutes with the patient or on the floor. More than 50% of this time involved counseling and coordination of care.
Anticipated Discharge: Within 24 hours
Subjective/Interval History
-
Date of Service: March 19, 2024
reports abd pain tenderness swelling right side. Breathing coughing otherwise since improved.
Objective Data
-
Labs:
Laboratory Results
03/19/24
06:19
WBC 11.9 H
Hgb 12.0
Hct 35.9 L
Plt Count 173
Sodium 143 D
Potassium 4.0
Chloride 110 H
Carbon Dioxide 22
BUN 53 H
Creatinine 1.6 H
Glucose 121 H
Calcium 9.4
Vital Signs:
Vital Signs
Temp Pulse Resp BP Pulse Ox
98.1 F 50 16 137/61 95
03/19/24 07:00 03/19/24 07:33 03/19/24 07:33 03/19/24 07:00 03/19/24 07:33
I&O
03/18/24 03/19/24 03/20/24
06:59 06:59 06:59
Intake Total 1919 900 / 900
Balance 1919 900 / 900
[2024-03-19] MEDS: PROZAC 40 MG PO (11:04)
[2024-03-19 11:21] LABS: Glucose - Point of Care 192 mg/dl (70-99)
[2024-03-19] MEDS: NSS IV (13:00)
[2024-03-19] MEDS: OMNIPAQUE 50 ML PO (13:34)
[2024-03-19] MEDS: NOVOLOG FLEXPEN 5 UNITS SC ×2 (13:45→18:21)
[2024-03-19] MEDS: NOVOLOG FLEXPEN-LOW RESISTANCE 1 UNITS SC (13:45)
[2024-03-19 15:15] VITALS: BP 152/66
[2024-03-19 15:45] VITALS: BP 150/68; PULSE 68; O2SAT 98
--- NOTE | 2024-03-19 16:11 | W.PN.PUL3 ---
Today's Communication / Plan
-
BDs
Pred taper
Dispo
Assessment
-
78 year old female with a past medical history of bronchitis, cough variant asthma, coronary artery disease and diabetes who presents for acutely worsening shortness or breathe and cough x 1 day. She states she has been using her nebulizer and
albuterol but felt paradoxical throat closure upon completion of treatment. She follows with Dr Wellington in office. Prior PFTs showing mild restriction. We are consulted for eval.
AE Asthma
Acute on chronic cough
VCD suspected, given closure of airway, cannot rule out anxiety
Conditions present VALVER
Cough variant asthma
Follow with Dr Wellington
Persistent cough 08/2018
Status post hospitalization late October 2012 for intractable cough exacerbation of asthma
Allergies to pollen and dust
Restrictive Lung Disease, TLC 3.71 L or 73% of predicted
Influenza A 10/2018
History of chronic bronchitis
Bronchitis 04/2017.
Acute bronchitis 05/2016
History of focal pleural thickening
CAD w/ History of percutaneous coronary intervention
Promus stent mid circumflex into 2015
Fibromyalgia/Chronic pain syndrome
Gastroparesis
HTN
HLD
IDDM
CKD (chronic kidney disease), stage III
Status post left TKA
History of osteoarthritis status post right TKA in 01/2008
Popliteal DVT status post prior right TKA
Gastroesophageal reflux disease
SIDDHARTHA
Obesity BMI 34
SLE
Meniere's Disease
Polymyalgia rheumatica, Dr Roe
Plan
No oxygen was needed on admission, currently saturating 98% on RA
Prior history of lung disease is noted including cough variant asthma, allergies, obesity, SIDDHARTHA on CPAP, RLD
Follows with Dr Wellington
Suspect patient has underlying VCD as well given her description of events
CXR obtained indicating NAD
Other imaging reviewed in past also clear
Continue ICS, she does feel improvement, continue Advair HFA
Objectively her cough has improved though she subjectively states worse
Continue albuterol nebs PRN
Placed on IV steroids, transitioned to prednisone 50 mg qd 03-19, taper by 10 mg q2d to off (not on chronic CS)
Continue Tessalon Perles QID
No ECHO results in past
Has history of HTN, not on ACEI
PND may be a factor with allergies
GERD-cont PPI from home
HOB elevation
SIDDHARTHA-resume home CPAP
Weight loss measures recommended
Obesity contributing to respiratory symptoms
Disposition efforts
D/w Mrs Kidd
Diagnostic Data
CXR 03/14/24: No acute cardiopulmonary process.
12/29/23- No acute disease of the chest
Subjective Data
-
Date of Service:
Date of Service: March 19, 2024
Chief Complaint: Pulmonary Follow Up
Subjective:
No major respiratory events reported
Walking the hallway earlier this afternoon at good pace
Reports right flank pain, CT abdomen ordered by admitting service
Review of Systems
General: Fever (n), Sweats (n), Chills (n) and Satisfactory Appetite
HEENT: Epistaxis (n) and Dysphagia (n)
Cardiopulmonary: Dyspnea on Exertion and Wheezing
GI: Abdominal Pain (R flank), Nausea (n) and Vomiting (n)
Neuro: Weakness
Objective Data
Data Reviewed
Vital Signs / I&O / Oxygen:
Vital Signs
Temp Pulse Resp BP Pulse Ox
98.2 F 57 18 152/66 98
03/19/24 15:15 03/19/24 15:15 03/19/24 15:15 03/19/24 15:15 03/19/24 15:15
Intake and Output
03/18/24 03/19/24 03/20/24
06:59 06:59 06:59
Intake Total 1919 900 / 900
Balance 1919 900 / 900
SaO2 98
Physical Exam
General: Comfortable and Other (NAD)
HEENT: Normocephalic, Anicteric and Moist Mucous Membranes
Cardiovascular: S1-S2, Regular Rhythm, Murmur (n), Peripheral Edema (n) and Calf Tenderness (n)
Respiratory: Clear, Non-Labored Respirations, Stridor (n) and Other (cough noted, dry)
GI: Soft, Non Distended and Non Tender
Neurology: Awake, Alert, Oriented, AO x 3, No Motor Deficits and Other (anxious)
Skin: Warm and Dry
Labs/Micro/Reports
Lab Data
03/19/24 06:19
03/19/24 06:19
[2024-03-19 17:35] LABS: Glucose - Point of Care 341 mg/dl (70-99)
[2024-03-19] MEDS: INDERAL LA 80 MG PO (18:06)
[2024-03-19] MEDS: NEURONTIN 300 MG PO (18:06)
[2024-03-19] MEDS: NOVOLOG FLEXPEN-LOW RESISTANCE 4 UNITS SC (18:22)
[2024-03-19 20:26] LABS: Glucose - Point of Care 297 mg/dl (70-99)
[2024-03-19] MEDS: PROTONIX 40 MG PO (21:49)
[2024-03-19] MEDS: SOMA 350 MG PO (21:49)
[2024-03-19] MEDS: LIPITOR 80 MG PO (21:50)
[2024-03-19] MEDS: DESYREL 25 MG PO (21:50)
[2024-03-19 23:00] VITALS: BP 128/64
[2024-03-20 06:00] VITALS: BMI 35.7
--- NOTE | 2024-03-20 07:09 | W.PN.HOSP.TC ---
Today's Communication/Plan
-
discharge
Assessment / Plan
Assessment / Plan
Physical Exam
General: appears comfortable at rest
HEENT: NormoCephalic and Anicteric
Respiratory: Clear to auscultation cough improved
Cardiac: S1/S2 and Regular Rhythm
GI: Soft mild right side tenderness bowel sounds present
Musculoskeletal: No Clubbing, No Cyanosis, No Edema
Skin: Warm and Dry
Neuro: Awake, Alert, Oriented and Nonfocal/grossly intact
Psych: Calm
78F bronchitis cough variant asthma migraines CAD Essential Tremors DM p/w worsening sob cough wheezing past day. Previously on prednisone taper for asthma exacerbation. Patient noted return/worsening of symptoms a few days following taper
completion. Symptoms improved with steroids bronchodilators but remain debilitating/distressing. VSS afebrile on room air. CXR noted no acute cardiopulmonary processes. Labs noted wbc 18.1 and hyperglycemia likely steroid induced.
Acute Asthma/COPD Exacerbation
-Consult Pulmonary appreciated Hi dose ICS mucinex scheduled Tessalon Perles
-Continue Decadron, steroid taper as per pulm
-Continue Duoneb QID and PRN
-Doxycycline 100 mg BID for anti-inflammatory effects (Azithromycin not used d/t QT prolongation) completed 5 days
Coronary Artery Disease s/p Stent
-Continue aspirin
Essential Hypertension
-Continue amlodipine and triamterene/HCTZ
Hyperlipidemia
-Continue atorvastatin and ezetimibe
Diabetes Mellitus, Type II
Steroid Induced Hyperglycemia
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
medium dose sliding scale
#Insomnia/poor sleep
likely exacerbated vs 2/2 steroids
trial low dose Trazodone HS, good response noted
Diabetic Neuropathy
-Continue gabapentin
Mild TISH on CKD Stage III
-Initial Cr 1.2 increased to 1.6 over the course of hospitalization, improved with IVF
- monitor renal function
Vestibular Migraine
-Continue propranolol and topiramate
03/17 episode choking meal this morning self limited
speech eval appreciated, episode likely related to xerostomia, excess mucus and known esophageal issues, recommended small bites/chew food thoroughly, remains appropriate for regular diet,
03/20 Right side abd tenderness swelling
most likely side affect abd injections heparin
CT abd/pelvis oral contrast only appreciated no acute abn's
-severe diverticulsosi
-moderate chronic b/l renal disease
-pancreatic lipomatosis
-severe b/l facet joint arthrosis lumbar/sacral spine
PT/OT eval's appreciated Home services vs Home no needs
DVT proph: SC Heparin
Code Status: Full Code
Medically stable for discharge home with outpatient follow up recommendations.
Total Time Preparing Discharge ___50____ minutes including examination of the patient, summary of the hospital stay, instructions for continuing care to all relevant caregivers; and preparation of discharge records, prescriptions, and referral
forms if necessary.
Anticipated Discharge: Today
Subjective/Interval History
-
Date of Service: March 20, 2024
Reports feeling well. Denies new acute issues at this time. Eager to go home.
Objective Data
-
Labs:
Laboratory Results
03/20/24
06:00
WBC Pending
Hgb Pending
Hct Pending
Plt Count Pending
Sodium Pending
Potassium Pending
Chloride Pending
Carbon Dioxide Pending
BUN Pending
Creatinine Pending
Glucose Pending
Calcium Pending
Vital Signs:
Vital Signs
Temp Pulse Resp BP Pulse Ox
98.0 F 55 18 128/64 97
03/19/24 23:00 03/19/24 23:00 03/19/24 23:00 03/19/24 23:00 03/19/24 23:00
I&O
03/19/24 03/20/24 03/21/24
06:59 06:59 06:59
Intake Total 900 / 900 960 / 960
Balance 900 / 900 960 / 960
[2024-03-20] MEDS: DUONEB 3 ML INH ×2 (07:25→11:04)
[2024-03-20] MEDS: ADVAIR HFA 230/21 MCG INHALER 2 PUFF INH (07:25)
[2024-03-20] MEDS: DELTASONE 50 MG PO (08:06)
[2024-03-20] MEDS: ASPIR LOW (ENTERIC COATED) 81 MG PO (08:06)
[2024-03-20] MEDS: PROZAC 40 MG PO (08:07)
[2024-03-20] MEDS: ZETIA 10 MG PO (08:07)
[2024-03-20] MEDS: MUCINEX 1200 MG PO (08:07)
[2024-03-20] MEDS: TESSALON PERLES 100 MG PO ×2 (08:08→14:17)
[2024-03-20] MEDS: HEPARIN 5000 UNITS SC (08:08)
[2024-03-20] MEDS: TOPAMAX 50 MG PO (08:08)
[2024-03-20] MEDS: NORVASC 5 MG PO (08:17)
[2024-03-20] MEDS: DYAZIDE 1 CAPSULE PO (08:21)
[2024-03-20 08:28] LABS: Glucose - Point of Care 208 mg/dl (70-99)
[2024-03-20] MEDS: NOVOLOG FLEXPEN-LOW RESISTANCE 2 UNITS SC (08:33)
[2024-03-20] MEDS: NOVOLOG FLEXPEN 10 UNITS SC (08:33)
[2024-03-20] MEDS: LANTUS 0.280000000000000027 UNITS SC (08:33)
[2024-03-20 09:22] LABS: Hematocrit 33.6 % (37.0-47.0); Hemoglobin 11.2 g/dL (12.0-16.0); Mean Corp Hgb Conc. 33.3 g/dL (33.0-37.0); Mean Corpuscular Hgb 30.9 pg (27.0-31.0); Mean Corpuscular Volume 92.6 fL (81.0-99.0); Platelet Count 144 10^3/uL (130-400); Red Blood Cell Count 3.63 10^6/uL (4.20-5.40); Red Cell Dist. Width 13.1 % (11.5-14.5); White Blood Cell Count 11.5 10^3/uL (4.8-10.8)
[2024-03-20 09:37] LABS: Blood Urea Nitrogen 49 mg/dl (7-17); Calcium 8.9 mg/dl (8.4-10.2); Carbon Dioxide 23 mmol/L (22-30); Chloride 110 mmol/L (98-107); Estimated Creatinine Clearance 36 ml/min; Glucose 177 mg/dl (70-99); Magnesium 1.8 mg/dl (1.6-2.3); Phosphorus 3.7 mg/dl (2.5-4.5); Potassium 3.9 mmol/L (3.5-5.1); Sodium 139 mmol/L (135-145); eGFR 38.27
[2024-03-20 12:09] LABS: Glucose - Point of Care 86 mg/dl (70-99)
[2024-03-20] MEDS: NOVOLOG FLEXPEN-LOW RESISTANCE SC (12:24)
[2024-03-20] MEDS: NOVOLOG FLEXPEN SC (12:27)
--- NOTE | 2024-03-20 12:35 | W.DCSUMMARY ---
Discharge Summary
Discharge Data
Date of Admission: 03/14/24
Date of Discharge: 03/20/24
-
Pending Results: No
Discharge Plan
-
Patient Disposition: Home (Routine Discharge)
Discharge Diagnosis/Procedures: Asthma exacerbation
Coronary Artery Disease
Essential Hypertension
Hyperlipidemia
Diabetes Mellitus, Type II
Steroid Induced Hyperglycemia
Diabetic Neuropathy
Mild Acute on Chronic Kidney Disease Stage III
Vestibular Migraine
Diverticulosis
Pancreatic Lipomatosis
severe bilateral facet joint arthrosis lower lumbar/sacral spine
Condition: Fair
Diet: Diabetic, Carb Controlled
Activity: As tolerated and With Walker
Driving Restrictions: Not until seen by your Dr
Bathing Restrictions: None
Blood Work: Please repeat CBC and BMP with primary care provider in 1 week of discharge.
Activity Restrictions/Additional Instructions:
Please follow up with your primary care provider in 1 week of discharge and your fine hairer in 2 weeks of discharge.
A prednisone taper has been prescribed to treat asthma exacerbation:
50 mg daily x1 day, then 40 mg daily x3 days, then 30 mg daily x3 days, then 20 mg daily x3 days, then 10 mg daily x3 days, then stop
Tessalon Perle has been converted to scheduled four times a day for 1 week. After 1 week completes, convert back to three times a day as needed.
For steroid induced hyperglycemia, it is recommended that you increase your Lantus to 20U twice a day. As your steroid is tapered, your insulin requirement will likely decrease.
Please take medications as prescribed/recommended and follow up with your primary care provider and/or other healthcare provider involved in your care for refills and/or further adjustment to your medication regimen as necessary.
Instructions: Low blood sugar in people with diabetes, Dealing with Low Blood Sugar from the Drugs You Take
Referrals:
Trish Alegre MD [Family Provider] - in one week
Xuan Johnson DO [Active] - in two weeks
Prescriptions:
New
prednisone 10 mg Tablet
See Rx Instructions .ROUTE .COMPLEX Qty: 35 0RF
Rx Instructions:
Take By Mouth: 50 mg daily x1 day,
40 mg daily x3 days, 30 mg daily x3 days,
20 mg daily x3 days, 10 mg daily x3 days.
Continued
carisoprodol 350 MG tablet
350 mg PO HS
guaifenesin [Mucus Relief ER] 600 MG tablet extended release 12hr
600 mg PO Q12H PRN (Reason: cough/congestion)
aspirin 81 MG tablet,delayed release (DR/EC)
81 mg PO DAILY
fluoxetine 40 mg Capsule
40 mg PO DAILY
atorvastatin 80 mg Tablet
80 mg PO HS
albuterol sulfate 2.5 mg /3 mL (0.083 %) Solution For Nebulization
2.5 mg INHALATION R TID
polyethylene glycol 3350 [Miralax] 17 gram Powder In Packet
17 g PO DAILY PRN (Reason: constipation)
amlodipine 5 mg Tablet
5 mg PO DAILY
acetaminophen [Tylenol Extra Strength] 500 mg Tablet
1,000 mg PO DAILYPRN PRN (Reason: mild pain)
calcium carbonate [Calcium 600] 600 mg calcium (1,500 mg) Tablet
1,200 mg PO HS
prednisolone acetate 1 % Drops,Suspension
2 drp BOTH EYES BID
magnesium hydroxide [Milk of Magnesia] 400 mg/5 mL Suspension
30 ml PO DAILY PRN (Reason: constipation)
propranolol 80 mg capsule,extended release 24 hr
80 mg PO QPM
gabapentin 300 mg Capsule
300 mg PO QPM
triamterene-hydrochlorothiazid 37.5-25 mg Tablet
1 tab PO DAILY
ezetimibe 10 mg Tablet
10 mg PO DAILY
Patient Comments:
03/14/2024, pt. unsure if this is morning or evening med.
insulin aspart U-100 [Novolog FlexPen U-100 Insulin] 100 unit/mL (3 mL) Insulin Pen
0 sliding scale dose SC DIRECTED
Rx Instructions:
03/14/2024, if BS<100 = 0 units; 100-149 = 14 units; 150-199 = 15 units; 200-249 = 16 units; 250-299 = 17 units; 300-349 = 18 units; 350-399 = 19 units; 400+ = 20 units.
omeprazole magnesium [Prilosec OTC] 20 mg Tablet,Delayed Release (Dr/Ec)
20 mg PO HS
omeprazole magnesium [Prilosec OTC] 20 mg Tablet,Delayed Release (Dr/Ec)
20 mg PO DAILY PRN (Reason: gerd)
topiramate 50 mg Tablet
50 mg PO BID
cholecalciferol (vitamin D3) 25 mcg (1,000 unit) Tablet
25 mcg PO DAILY
Centrum Silver Women 8 mg iron-400 mcg-50 mcg Tablet
1 tab PO DAILY
fluticasone furoate-vilanterol [Breo Ellipta] 100-25 mcg/dose Blister With Device
1 inh INHALATION R DAILY@1600
Benefiber
1 dose PO DAILYPRN PRN (Reason: constipation)
Changed
benzonatate 200 mg Capsule
200 mg PO QID 7 Days Qty: 28 0RF
Rx Instructions:
four times a day for 7 days then reduce back to three times a day as needed
insulin glargine [Lantus Solostar U-100 Insulin] 100 unit/mL (3 mL) Insulin Pen
20 unit SC BID Qty: 15 0RF
Discharge Orders:
Discharge Patient (As Directed); Ordered 03/20/24
Ordered By: Jaydon Carlson
Discharge Date and Time
Print Language: ETHIOPIAN
--- NOTE | 2024-03-20 12:49 | CM ---
Patient seen bedside.
Patient for d/c home today.
No d/c needs.
Grandson will transport.
Plan: home no needs.
[2024-03-20 14:30] VITALS: BP 135/60
[2024-03-20] MEDS: DUONEB INH ×2 (15:13→15:39)
== END 2024-03-20 16:13 | disposition home or self-care (01) | DRG 202 ==
LOC: 4 WEST ACU 18:58
PROVIDERS: Physician Assistant; Physician Assistant Medical; ADMITTING PHYSICIAN Internal Medicine; CONSULT PHYSICIAN Internal Medicine; EMERGENCY PHYSICIAN Emergency Medicine; FAMILY PHYSICIAN Emergency Medicine
DX: J45.901 Unspecified asthma with (acute) exacerbation (principal); J44.0 Chronic obstructive pulmonary disease with (acute) lower respiratory infection; J44.1 Chronic obstructive pulmonary disease with (acute) exacerbation; N17.9 Acute kidney failure, unspecified; Z95.5 Presence of coronary angioplasty implant and graft; I25.10 Atherosclerotic heart disease of native coronary artery without angina pectoris; N18.30 Chronic kidney disease, stage 3 unspecified; E78.5 Hyperlipidemia, unspecified; K31.84 Gastroparesis; E11.43 Type 2 diabetes mellitus with diabetic autonomic (poly)neuropathy; E66.9 Obesity, unspecified; Z68.34 Body mass index [BMI] 34.0-34.9, adult; M32.9 Systemic lupus erythematosus, unspecified; I13.10 Hypertensive heart and chronic kidney disease without heart failure, with stage 1 through stage 4 chronic kidney disease, or unspecified chronic kidney disease
CPT/HCPCS: 71046; 74176; 80048; 80053; 82947; 82962; 83036; 83735; 83880; 84100; 85025; 85027; 92610; 93005; 93970; 94640; 97162; 97165; 97530; 99285

== ENCOUNTER → 2024-04-06 08:49 | Outpatient (REF) | payer MEDICARE, SELFPAY | LOC: DHCBC/DCA 08:49 | PROVIDERS: ATTENDING PHYSICIAN Internal Medicine Interventional Cardiology; FAMILY PHYSICIAN Emergency Medicine | DX: I10 Essential (primary) hypertension (principal); I25.10 Atherosclerotic heart disease of native coronary artery without angina pectoris | CPT/HCPCS: 78452; 93017; A9500; J2785 ==

== ENCOUNTER → 2024-04-28 09:48 | Outpatient (REF) | payer MEDICARE, SELFPAY | LOC: RCS 09:48 | PROVIDERS: ATTENDING PHYSICIAN Internal Medicine Interventional Cardiology; FAMILY PHYSICIAN Emergency Medicine | DX: I10 Essential (primary) hypertension (principal); I25.10 Atherosclerotic heart disease of native coronary artery without angina pectoris; Z98.890 Other specified postprocedural states; E11.42 Type 2 diabetes mellitus with diabetic polyneuropathy | CPT/HCPCS: 93306 ==

== ENCOUNTER → 2024-06-03 07:23 | Outpatient (REF) | payer MEDICARE, SELFPAY ==
[2024-06-03 08:05] LABS: % Immature Granulocytes 0.8 % (0-0.5); % Lymphocytes 30.8 % (20.5-51.1); % Monocytes 7.8 % (1.7-9.3); % Neutrophils 57.6 % (42.2-75.2); Absolute Basophils 0.1 10^3/uL (0-0.2); Absolute Eosinophils 0.2 10^3/uL (0-0.7); Absolute Immature Granulocytes 0.1 10^3/uL (0-0.05); Absolute Lymphocytes 2.6 10^3/uL (1.2-3.4); Absolute Monocytes 0.7 10^3/uL (0.1-0.6); Absolute Neutrophils 4.8 10^3/uL (1.4-6.5); Hematocrit 38.2 % (37.0-47.0); Hemoglobin 13.4 g/dL (12.0-16.0); Mean Corp Hgb Conc. 35.1 g/dL (33.0-37.0); Mean Corpuscular Hgb 31.7 pg (27.0-31.0); Mean Corpuscular Volume 90.3 fL (81.0-99.0); Mean Platelet Volume 12.2 fL (7.4-10.4); Nucleated Red Blood Cells % 0 %; Platelet Count 193 10^3/uL (130-400); Red Blood Cell Count 4.23 10^6/uL (4.20-5.40); Red Cell Dist. Width 12.3 % (11.5-14.5); White Blood Cell Count 8.3 10^3/uL (4.8-10.8)
[2024-06-03 08:44] LABS: ALT (SGPT) 21 U/L (0-35); AST (SGOT) 31 U/L (14-36); Alkaline Phosphatase 116 U/L (38-126); Blood Urea Nitrogen 26 mg/dl (7-17); Calcium 9.1 mg/dl (8.4-10.2); Carbon Dioxide 25 mmol/L (22-30); Chloride 101 mmol/L (98-107); Glucose 194 mg/dl (70-99); HDL Cholesterol 47 mg/dl; LDL Cholesterol, Calculated 91 mg/dl; Sodium 136 mmol/L (135-145); Total Bilirubin 0.4 mg/dl (0.2-1.3); Total Cholesterol 160 mg/dl (50-199); Total Protein 6.2 g/dl (6.3-8.2); Triglyceride 114 mg/dl (10-149); Very Low Density Lipoprotein 22 mg/dl (0-30); eGFR 35.23
[2024-06-03 09:11] LABS: Glycohemoglobin (HgbA1c) 8.5 % (4.0-5.6)
== END ==
LOC: REG 07:23
PROVIDERS: ATTENDING PHYSICIAN Emergency Medicine
DX: E11.65 Type 2 diabetes mellitus with hyperglycemia (principal); N18.32 Chronic kidney disease, stage 3b; I10 Essential (primary) hypertension; D72.828 Other elevated white blood cell count
CPT/HCPCS: 36415; 80053; 80061; 83036; 85025

== ENCOUNTER 2024-09-28 16:09 | Emergency (ER) | payer MEDICARE, SELFPAY ==
[2024-09-28 18:05] VITALS: BP 183/75
[2024-09-28 18:17] VITALS: BP 180/93
[2024-09-28] MEDS: DUONEB 3 ML INH (19:00)
[2024-09-28] MEDS: DECADRON 6 MG IV (19:00)
[2024-09-28 19:13] LABS: % Basophils 0.6 % (0-2); % Eosinophils 1.9 % (0-6); % Immature Granulocytes 0.7 % (0-0.5); % Lymphocytes 31.8 % (20.5-51.1); % Monocytes 7.9 % (1.7-9.3); % Neutrophils 57.1 % (42.2-75.2); Absolute Basophils 0.1 10^3/uL (0-0.2); Absolute Eosinophils 0.2 10^3/uL (0-0.7); Absolute Immature Granulocytes 0.1 10^3/uL (0-0.05); Absolute Lymphocytes 2.6 10^3/uL (1.2-3.4); Absolute Monocytes 0.6 10^3/uL (0.1-0.6); Absolute Neutrophils 4.6 10^3/uL (1.4-6.5); Hematocrit 36.2 % (37.0-47.0); Hemoglobin 12.3 g/dL (12.0-16.0); Mean Corpuscular Hgb 31.5 pg (27.0-31.0); Mean Corpuscular Volume 92.6 fL (81.0-99.0); Nucleated Red Blood Cells % 0 %; Platelet Count 163 10^3/uL (130-400); Red Blood Cell Count 3.91 10^6/uL (4.20-5.40); Red Cell Dist. Width 12.6 % (11.5-14.5)
[2024-09-28 19:20] LABS: COVID-19 Antigen Negative (Negative)
[2024-09-28 19:32] LABS: Blood Urea Nitrogen 28 mg/dl (7-17); Calcium 8.6 mg/dl (8.4-10.2); Carbon Dioxide 25 mmol/L (22-30); Chloride 106 mmol/L (98-107); Glucose 186 mg/dl (70-99); Sodium 141 mmol/L (135-145)
[2024-09-28 19:36] LABS: Troponin I < 0.012 ng/ml
--- NOTE | 2024-09-28 19:38 | ED.GENMED ---
History of Present Illness
<Stephen Prado MD - Last Filed: 09/28/24 19:52>
General
Chief Complaint: Breathing Problem
Time Seen by Provider: 09/28/24 18:04
<Chrissy Rolon MD, Resident - Last Filed: 09/29/24 00:10>
History of Present Illness
History of Present Illness:
79 y/o female with pmhx of chronic bronchitis presenting to the ED with productive cough since 5 days ago and night sweats. Notes chills. Denies chest pain, sick contacts, SOB, nausea vomiting, chest pain. Pt has been taking antibiotics (cannot
recall the name) since 2 days ago and states her symptoms are improving. She was admitted here for similiar symptoms in April 2024 for which she recieved IV steroids. Pt notes her symptoms are less severe this admission.
Past History
<Stephen Prado MD - Last Filed: 09/28/24 19:52>
Past History
ED Past Medical History: CAD, COPD, HTN and Other (Polymyalgia rheumatica/fibromyalgia)
ED Past Surgical History: None
Social History
Tobacco: Non-smoker
Alcohol: None
Drug: None
Review of Systems
<Chrissy Rolon MD, Resident - Last Filed: 09/29/24 00:10>
Review of Systems
Constitutional: Reports night sweats
EENT: Reports no symptoms
Respiratory: Reports cough
Cardiac: Reports no symptoms
ABD/GI: Reports no symptoms
: Reports no symptoms
Musculoskeletal: Reports no symptoms
Skin: Reports no symptoms
Neurological: Reports no symptoms
Endocrine: Reports no symptoms
Hematologic/Lymphatic: Reports no symptoms
Psychiatric: Reports no symptoms
Phy Exam
<Chrissy Rolon MD, Resident - Last Filed: 09/29/24 00:10>
Physical Exam
Physical Exam:
GENERAL: Alert, in no apparent distress
EYE: pupils equal and reactive
NECK: Supple, no significant adenopathy.
ENT: o/p clr, mmm.
CARDIAC: Regular rate and rhythm.
LUNGS: Clear breath sounds bilaterally, no acute respiratory distress, no wheezes/rales/rhonchi
ABDOMEN: Soft, without focal tenderness, no r/g, no cvat
NEUROLOGICAL: Alert and oriented, no focal neuro deficits
SKIN: Warm and dry, skin intact.
MUSCULOSKELETAL: No edema, well perfused.
PSYCH: Normal and appropriate interaction.
Scores
<Chrissy Rolon MD, Resident - Last Filed: 09/29/24 00:10>
Heart Failure Risk
Heart Failure Risk Score: Not Applicable
Course
<Stephen Prado MD - Last Filed: 09/28/24 19:52>
Orders/Labs/Results
Orders:
Orders
09/28/24 18:35
Electrocardiogram (*1) Urgent
Reason for Study: Shortness of Breath
EKG- Treatment ONCE
09/28/24 18:38
Dexamethasone Sod Phosphate [Decadron] 6 mg IV NOW STA
Ipratropium/Albuterol Sulfate [Duoneb] 3 ml INH R NOW STA
CR Chest - 2 Views Urgent
Comment:
Reason For Exam: cough
09/28/24 18:57
COVID-19 Antigen Urgent
Source: Nasal Swab
Complete Blood Count/With Diff Urgent
Troponin I Urgent
Influenza A+B Rapid Molecular Urgent
XU Source: Nasal Swab
Specimen Description:
09/28/24 18:59
Basic Metabolic Panel Urgent
09/28/24 20:15
Doxycycline Hyclate [Vibramycin] 100 mg 0.9% Sodium Chloride 250 ml [Nss] 250 ml IV NOW
09/28/24 21:59
Insulin Glargine Lantus [Lantus] 8 units Subcutaneous Insulin Syringe [Syringe-Insulin] 0 unit SC NOW
09/28/24 22:15
Insulin Glargine Lantus [Lantus] 8 units Subcutaneous Insulin Syringe [Syringe-Insulin] 0 unit SC NOW
Abnormal Lab Results
09/28/24 09/28/24
18:57 18:59
RBC 3.91 L 10^6/uL
(4.20-5.40)
Hct 36.2 L %
(37.0-47.0)
MCH 31.5 H pg
(27.0-31.0)
MPV 12.0 H fL
(7.4-10.4)
Abs Immat Gran (auto) 0.1 H 10^3/uL
(0-0.05)
Immature Gran % 0.7 H %
(0-0.5)
BUN 28 H mg/dl
(7-17)
Creatinine 1.1 H mg/dL
(0.6-1.0)
Glucose 186 H mg/dl
(70-99)
09/28/24 18:57
09/28/24 18:59
Vital Signs
Initial and Last Documented VS:
Initial Vital Signs
Temp Pulse Resp Pulse Ox
98.2 F 62 18 94
09/28/24 16:12 09/28/24 16:12 09/28/24 16:12 09/28/24 16:12
Last Documented Vital Signs
Temp Pulse Resp BP Pulse Ox
98.2 F 56 20 180/93 99
09/28/24 16:12 09/28/24 19:30 09/28/24 19:30 09/28/24 18:17 09/28/24 19:30
Hailt;Chrissyjanelle Rolon MD, Resident - Last Filed: 09/29/24 00:10>
Orders/Labs/Results
Orders:
Orders
09/28/24 18:35
Electrocardiogram (*1) Urgent
Reason for Study: Shortness of Breath
EKG- Treatment ONCE
09/28/24 18:38
Dexamethasone Sod Phosphate [Decadron] 6 mg IV NOW STA
Ipratropium/Albuterol Sulfate [Duoneb] 3 ml INH R NOW STA
CR Chest - 2 Views Urgent
Comment:
Reason For Exam: cough
09/28/24 18:57
COVID-19 Antigen Urgent
Source: Nasal Swab
Complete Blood Count/With Diff Urgent
Troponin I Urgent
Influenza A+B Rapid Molecular Urgent
XU Source: Nasal Swab
Specimen Description:
09/28/24 18:59
Basic Metabolic Panel Urgent
09/28/24 20:15
Doxycycline Hyclate [Vibramycin] 100 mg 0.9% Sodium Chloride 250 ml [Nss] 250 ml IV NOW
09/28/24 21:59
Insulin Glargine Lantus [Lantus] 8 units Subcutaneous Insulin Syringe [Syringe-Insulin] 0 unit SC NOW
09/28/24 22:15
Insulin Glargine Lantus [Lantus] 8 units Subcutaneous Insulin Syringe [Syringe-Insulin] 0 unit SC NOW
Abnormal Lab Results
09/28/24 09/28/24
18:57 18:59
RBC 3.91 L 10^6/uL
(4.20-5.40)
Hct 36.2 L %
(37.0-47.0)
MCH 31.5 H pg
(27.0-31.0)
MPV 12.0 H fL
(7.4-10.4)
Abs Immat Gran (auto) 0.1 H 10^3/uL
(0-0.05)
Immature Gran % 0.7 H %
(0-0.5)
BUN 28 H mg/dl
(7-17)
Creatinine 1.1 H mg/dL
(0.6-1.0)
Glucose 186 H mg/dl
(70-99)
09/28/24 18:57
09/28/24 18:59
Vital Signs
Initial and Last Documented VS:
Initial Vital Signs
Temp Pulse Resp Pulse Ox
98.2 F 62 18 94
09/28/24 16:12 09/28/24 16:12 09/28/24 16:12 09/28/24 16:12
Last Documented Vital Signs
Temp Pulse Resp BP Pulse Ox
98.2 F 56 20 180/93 99
09/28/24 16:12 09/28/24 19:30 09/28/24 19:30 09/28/24 18:17 09/28/24 19:30
<Chrissy Rolon MD, Resident - Last Filed: 09/29/24 00:10>
MDM/Problems Addressed
Differential Diagnosis Includes:
Acute on chronic bronchitis
Pneumonia
COVID-19
Upper respiratory tract infection
ACS
MDM/Problems Addressed:
- CBC, CMP
- EKG, troponin
- Duoneb
- Decadron 6mg IV
- Chest xray
<Chrissy Rolon MD, Resident - Last Filed: 09/29/24 00:10>
*Critical Care Note
Total Time (30-74mins, 75-104mins- exclusive of procedures): Not Applicable
ED Attending Note
<Stephen Prado MD - Last Filed: 09/28/24 19:52>
ED Attending Note
Patient seen and examined by attending physician: Yes
I performed a history and physical exam of patient and discussed management with resident, I reviewed resident's note and agree with documented findings and plan of care.: Yes
ED Attending Note:
79-year-old female complaining of ongoing cough with sputum for 4 to 5 days. History of chronic bronchitis. No true shortness of breath no pleuritic pain no high fever. Patient is trying to cut symptoms early.
On exam patient is nontoxic in no distress. She has an occasional coarse cough although no respiratory distress. Lungs are relatively clear but distant. Heart regular rate and rhythm no murmur. Abdomen soft and nontender. Extremities are warm
and dry. Grossly nonfocal. Perfusing well.
EKG shows a right bundle branch block with no acute changes. Chest x-ray is unremarkable. Labs are stable. Mild hyperglycemia.
Discussed management with patient at length. Options would include inpatient management with nebulizer steroids and antibiotics versus outpatient management. She states she is very comfortable managing this as an outpatient which is very
reasonable given her nontoxic appearance and good pulse ox. She will be started on doxycycline 100 mg twice daily for 10 days. 5 days of prednisone at 40 mg a day. Watch her blood sugars closer. Continue her nebulizers at home and follow-up
-
Portions of this chart may have been created with voice recognition software.� Occasional wrong word or��sound alike� substitutions may have occurred due to the inherent limitations of voice recognition software.
Discharge Plan
Departure
Patient Disposition: Home (Routine Discharge)
Date of Disposition: 09/28/24
Time of Disposition: 19:52
Patient with high blood pressure during this ER visit?: Yes
Discharge Problem:
Acute exacerbation of chronic bronchitis
Instructions: Shortness of Breath (Dyspnea) (DC), BLOOD PRESSURE
Prescriptions:
New
doxycycline hyclate 100 mg capsule
100 mg PO BID Qty: 20 0RF
prednisone 20 mg tablet
40 mg PO DAILY Qty: 10 0RF
No Action
carisoprodol 350 MG tablet
350 mg PO HS
guaifenesin [Mucus Relief ER] 600 MG tablet extended release 12hr
600 mg PO Q12H PRN (Reason: cough/congestion)
aspirin 81 MG tablet,delayed release (DR/EC)
81 mg PO DAILY
fluoxetine 40 mg Capsule
40 mg PO DAILY
atorvastatin 80 mg Tablet
80 mg PO HS
albuterol sulfate 2.5 mg /3 mL (0.083 %) Solution For Nebulization
2.5 mg INHALATION R TID
polyethylene glycol 3350 [Miralax] 17 gram Powder In Packet
17 g PO DAILY PRN (Reason: constipation)
amlodipine 5 mg Tablet
5 mg PO DAILY
acetaminophen [Tylenol Extra Strength] 500 mg Tablet
1,000 mg PO DAILYPRN PRN (Reason: mild pain)
calcium carbonate [Calcium 600] 600 mg calcium (1,500 mg) Tablet
1,200 mg PO HS
prednisolone acetate 1 % Drops,Suspension
2 drp BOTH EYES BID
magnesium hydroxide [Milk of Magnesia] 400 mg/5 mL Suspension
30 ml PO DAILY PRN (Reason: constipation)
propranolol 80 mg capsule,extended release 24 hr
80 mg PO QPM
gabapentin 300 mg Capsule
300 mg PO QPM
triamterene-hydrochlorothiazid 37.5-25 mg Tablet
1 tab PO DAILY
ezetimibe 10 mg Tablet
10 mg PO DAILY
Patient Comments:
03/14/2024, pt. unsure if this is morning or evening med.
insulin aspart U-100 [Novolog FlexPen U-100 Insulin] 100 unit/mL (3 mL) Insulin Pen
0 sliding scale dose SC DIRECTED
Rx Instructions:
03/14/2024, if BS<100 = 0 units; 100-149 = 14 units; 150-199 = 15 units; 200-249 = 16 units; 250-299 = 17 units; 300-349 = 18 units; 350-399 = 19 units; 400+ = 20 units.
omeprazole magnesium [Prilosec OTC] 20 mg Tablet,Delayed Release (Dr/Ec)
20 mg PO HS
omeprazole magnesium [Prilosec OTC] 20 mg Tablet,Delayed Release (Dr/Ec)
20 mg PO DAILY PRN (Reason: gerd)
topiramate 50 mg Tablet
50 mg PO BID
cholecalciferol (vitamin D3) 25 mcg (1,000 unit) Tablet
25 mcg PO DAILY
Centrum Silver Women 8 mg iron-400 mcg-50 mcg Tablet
1 tab PO DAILY
fluticasone furoate-vilanterol [Breo Ellipta] 100-25 mcg/dose Blister With Device
1 inh INHALATION R DAILY@1600
Benefiber
1 dose PO DAILYPRN PRN (Reason: constipation)
prednisone 10 mg Tablet
See Rx Instructions .ROUTE .COMPLEX Qty: 35 0RF
Rx Instructions:
Take By Mouth: 50 mg daily x1 day,
40 mg daily x3 days, 30 mg daily x3 days,
20 mg daily x3 days, 10 mg daily x3 days.
benzonatate 200 mg Capsule
200 mg PO QID 7 Days Qty: 28 0RF
Rx Instructions:
four times a day for 7 days then reduce back to three times a day as needed
insulin glargine [Lantus Solostar U-100 Insulin] 100 unit/mL (3 mL) Insulin Pen
20 unit SC BID Qty: 15 0RF
Referrals:
Trish Alegre MD [Family Provider] -
Activity Restrictions/Additional Instructions:
You were discharged with doxycycline 100mg twice daily for 10 days and prednisone 40 mg daily for 5 days. You should return to the emergency department if you develop worsening of symptoms, difficulty breathing, and chest pain. Please follow-up with
your PCP after you complete the course of treatment.
Interventions
Interventions:
*Risk Screen - Suicide Last Done: 09/28/24 16:13
*General Assessment Last Done: 09/28/24 16:13
*Neglect/Abuse Screening Last Done: 09/28/24 16:13
ED- Fall Risk Assessment Last Done: 09/28/24 18:24
*ED COVID-19 Vaccine History Last Done: 09/28/24 16:13
*Nursing Disposition Last Done: 09/28/24 22:25
ED- Cardiac Assessment Last Done: 09/28/24 18:24
ED- Pulmonary Assessment Last Done: 09/28/24 18:24
Discharge Date and Time
Discharge Date/Time: 09/28/24 22:26
Print Language: GERMAN
[2024-09-28] MEDS: VIBRAMYCIN 260 MG IV (20:36)
== END 2024-09-28 22:26 | disposition home or self-care (01) ==
LOC: EMR 16:09
PROVIDERS: EMERGENCY PHYSICIAN Emergency Medicine; FAMILY PHYSICIAN Emergency Medicine
DX: J20.9 Acute bronchitis, unspecified (principal); J44.0 Chronic obstructive pulmonary disease with (acute) lower respiratory infection; R05.9 Cough, unspecified; R61 Generalized hyperhidrosis; Z11.52 Encounter for screening for COVID-19; R73.9 Hyperglycemia, unspecified; I45.10 Unspecified right bundle-branch block; I25.10 Atherosclerotic heart disease of native coronary artery without angina pectoris; I10 Essential (primary) hypertension; M79.7 Fibromyalgia; M35.3 Polymyalgia rheumatica; Z88.5 Allergy status to narcotic agent; Z88.8 Allergy status to other drugs, medicaments and biological substances; Z91.048 Other nonmedicinal substance allergy status; Z79.82 Long term (current) use of aspirin
CPT/HCPCS: 99285; 96365; 96375; 94640; 71046; 80048; 84484; 85025; 87502; 87811; 93005

== ENCOUNTER → 2024-10-19 16:12 | Outpatient (REF) | payer MEDICARE, SELFPAY | LOC: RAD 16:12 | PROVIDERS: ATTENDING PHYSICIAN Emergency Medicine | DX: J42 Unspecified chronic bronchitis (principal); R07.89 Other chest pain; R05.3 Chronic cough | CPT/HCPCS: 71046 ==